=== PATIENT | female | born 1960 | race Caucasian/White ===

== ENCOUNTER 2019-12-17 07:46 | Outpatient (CLI) | payer MEDICARE, SELFPAY ==
--- NOTE | 2019-12-17 07:55 | MM_ITS ---
WS: [id number] BILATERAL DIGITAL SCREENING MAMMOGRAM WITH CAD CLINICAL INFORMATION: SCREENING HISTORY: Screening mammogram. No current complaints. COMPARISON: October 17, 2015 TECHNIQUE: Bilateral CC and MLO views. FINDINGS: Fatty-replaced breasts bilaterally. Stable oil cyst anterior medial right breast. No suspicious focal mass, asymmetry, calcifications, or architectural distortion. No evidence of malignancy. MM/[id number] IMPRESSION: BI-RADS: 2-Benign FOLLOW UP: 1 Year Follow-up Recommend return to annual screening mammography.
== END 2019-12-17 07:47 | disposition home or self-care (01) ==
LOC: RADSHAW 07:52
PROVIDERS: PCP Nurse Practitioner Family; Visit Provider Nurse Practitioner Family
DX: Z12.31 Encounter for screening mammogram for malignant neoplasm of breast (principal)
CPT/HCPCS: 77067

== ENCOUNTER → 2020-04-26 09:34 | Outpatient (BNVA) | payer MEDICARE, SELFPAY | PROVIDERS: PCP Nurse Practitioner Family; Visit Provider Nurse Practitioner Women's Health | DX: N95.0 Postmenopausal bleeding (principal) | CPT/HCPCS: 88175 ==

== ENCOUNTER → 2020-05-04 15:03 | Outpatient (BNVA) | payer MEDICARE, SELFPAY | PROVIDERS: PCP Nurse Practitioner Family; Visit Provider Nurse Practitioner Women's Health | DX: N95.0 Postmenopausal bleeding (principal) | CPT/HCPCS: 88305 ==

== ENCOUNTER 2021-04-12 11:41 | Outpatient (CLI) | payer MEDICARE, SELFPAY ==
--- NOTE | 2021-04-12 11:47 | MM_ITS ---
WS: [id number] BILATERAL DIGITAL SCREENING MAMMOGRAPHY WITH CAD CLINICAL INFORMATION: SCREENING HISTORY: Screening mammogram. No current complaints. COMPARISON: December 17, 2019 TECHNIQUE: Bilateral CC and MLO views. FINDINGS: Scattered fibroglandular densities bilaterally. Stable oil cyst anteromedial right breast. No suspici ous focal mass, asymmetry, calcifications, or architectural distortion. No evidence of malignancy. MM/[id number] IMPRESSION: BI-RADS: 2-Benign FOLLOW UP: 1 Year Follow-up Recommend return to annual screening mammography.
== END 2021-04-12 11:42 | disposition home or self-care (01) ==
LOC: RADSHAW 11:43
PROVIDERS: PCP Nurse Practitioner Family; Visit Provider Nurse Practitioner Family
DX: Z12.31 Encounter for screening mammogram for malignant neoplasm of breast (principal)
CPT/HCPCS: 77067

== ENCOUNTER 2022-02-01 14:26 | Outpatient (CLI) | payer MEDICARE, SELFPAY ==
--- NOTE | 2022-02-01 14:36 | XR_ITS ---
WS: [id number] SCREENING DEXA SCAN [employer] CLINICAL INFORMATION: POSTMENOPAUSAL COMPARISON: None. FINDINGS: The L1-L4 bone mineral density measures 1.350 g/cm2. This corresponds to a T score score of 1.4 and Z score of 1.6. Left femoral neck bone mineral density measures 1.105 g/cm2. This corresponds to a T score of 0.8 and Z score of 1.0. Right femoral neck bone mineral density measures 1.052 g/cm2. This corresponds to a T score 0.4of and Z score of 0.5. Mean femoral neck bone mineral density measures 1.079 g/cm2. This corresponds to a T score of 0.6 and Z score of 0.7. XR/XR DEXA axial skeleton* [id number] IMPRESSION: Normal bone mineralization. Patient's FRAX calculated 10 year probability for major osteoporotic fracture i s 6.1 % and osteoporotic hip fracture is 0.5%.
== END 2022-02-01 14:27 | disposition home or self-care (01) ==
PROVIDERS: PCP Nurse Practitioner Family; Visit Provider Nurse Practitioner Family
DX: Z78.0 Asymptomatic menopausal state (principal)
CPT/HCPCS: 77080

== ENCOUNTER 2022-09-22 15:12 | Inpatient (IN) | payer MEDICARE, SELFPAY ==
[2022-09-22] VITALS (11 sets, daily range): BP systolic 94–139; BP diastolic 58–92; PULSE 90–123; RESP 14–21; TEMP 36.6–37.1; O2SAT 91–99; BMI 36.0
--- NOTE | 2022-09-22 16:05 | CTR_ITS ---
PROCEDURE INFORMATION: Exam: CT Abdomen And Pelvis With Contrast Exam date and time: 09/22/2022 4:19 PM Age: 61 years old Clinical indication: Mass, lump, or swelling; Other: Right perianal; Prior surgery; Surgery type: Tubal; Additional info: Perianal abscess TECHNIQUE: Imaging protocol: Computed tomography of the abdomen and pelvis with contrast. Radiation optimization: All CT scans at this facility use at least one of these dose optimization techniques: automated exposure control; mA and/or kV adjustment per patient size (includes targeted exams where dose is matched to clinical indication); or iterative reconstruction. Contrast material: OMNI 350; Contrast volume: 100 ml; Contrast route: INTRAVENOUS (IV); REPORTING DATA: Count of CT and Cardiac NM exams in prior 12 months: This patient has received 0 known CTs and 0 known cardiac nuclear medicine studies in the 12 months prior to the current study. COMPARISON: US pelv w/transvag [id number] 04/10/2020 11:20 AM RADIATION DOSE METRICS: Total DLP (mGy-cm): 1111.23 FINDINGS: Liver: Hepatic steatosis. Gallbladder and bile ducts: Normal. No calcified stones. No ductal dilation. Pancreas: Normal. No ductal dilation. Spleen: Normal. No splenomegaly. Adrenal glands: Left adrenal hypertrophy. Kidneys and ureters: Left kidney cyst, negative for follow up. Stomach and bowel: See below. Appendix: No evidence of appendicitis. Intraperitoneal space: Unremarkable. No free air. No significant fluid collection. Vasculature: Unremarkable. No abdominal aortic aneurysm. Lymph nodes: Unremarkable. No enlarged lymph nodes. Urinary bladder: Unremarkable as visualized. Reproductive: Unremarkable as visualized. Bones/joints: Unremarkable. No acute fracture. Soft tissues: 27 mm collection of subcutaneous air and edema in the right gluteal crease suggestive of an ulcer and/or infectious process, negative for fluid collection seen. A portion of this appears to extend to the region of the anus. CT/CT abdomen pelvis w con* [id number] IMPRESSION: 1. 27 mm collection of subcutaneous air and edema in the right gluteal crease suggestive of an ulcer and/or infectious process, negative for fluid collection seen. A portion of this appears to extend to the region of the anus. 2. Hepatic steatosis. 3. Left adrenal hypertrophy. 4. Left kidney cyst, negative for follow up advised. COMMENTS: Consistent with the [employer]'s Incidental Findings Committee white paper (J Am Igor Radiol 2018): Any incidental renal lesion less than 1 cm or classified as too small to characterize, or any incidental cystic renal lesion characterized as simple-appearing, is likely benign. No follow-up imaging is recommended for these lesions per consensus recommendations based on imaging criteria.
--- NOTE | 2022-09-22 16:15 | W.ED.SKABFB ---
Documented by User: DUANE Zhao 09/22/22 16:42 HPI - Skin/Abscess/Foreign Bdy General: Chief complaint: Skin/Abscess/Foreign Body Stated complaint: Abscess on right buttock Time Seen by Provider: 09/22/22 15:37 History of Present Illness: Patient is a 61 yo female that presents with complaints of rectal abscess. She is a poorly controlled diabetic that developed a febrile illness 2 weeks ago and shortly after a small abscess on her right buttock. She was seen at [facility]. She was started on Bactrim. Her abscess has only worsened. She has purulent drainage that is foul smelling. She feels poorly but may have fevers at home. Mildly tachycardic Associated symptoms: Deny chills, fever(s), nausea or vomiting Review of Systems General: Reports: 10 or more systems reviewed and unremarkable except in HPI and below Const: Denies: fever(s), chills, change in appetite, change in weight, fatigue or malaise Card: Denies: chest pain, palpitations, irregular heart rhythm, edema, dyspnea on exertion, orthopnea or leg pain with exertion Resp: Denies: dyspnea, productive cough, non-productive cough, wheezing, stridor or chest congestion GI: Denies: abdominal pain, nausea, vomiting, dysphagia, diarrhea, constipation, bloating, GI cramping or hematochezia : Denies: flank pain, difficulty voiding, dysuria, urinary frequency, urinary urgency, urinary hesitancy, oliguria or hematuria Musc: Denies: neck pain, back pain, extremity pain, joint pain, joint swelling, joint redness, joint warmth or muscle weakness Skin/Breast: Reports: pruritus, erythema, skin tenderness, skin swelling, new lesions, changing lesions and non-healing lesions; Denies: rash Neuro: Denies: headache(s), numbness in extremities, weakness in extremities, sensory changes, lack of coordination, difficulty walking, frequent falls, dizziness, confusion, Slurred speech present, difficulty communicating thoughts, seizure-like activity or involuntary movements Endo: Denies: polyuria, polydipsia or tired all the time Marquise/Lymph: Denies: easy bruising or easy bleeding PFS ED PFSH: Medical History Anxiety Breast lump R side in 1300 position Depression Diabetes type 2 Diverticulosis of duodenum HTN (hypertension) No pertinent past medical history neghx; thyroid,dvt/pe Tachycardia Ulcer Urgency incontinence Surgical History History of fracture of right ankle ORIF Hx of tubal ligation (~1994) Family History Mother Diabetes Hypertension Grandmother Diabetes Paternal Father Hypertension Family/Other Heart disease Paternal Aunt, Paternal Uncle Denies family history of Colon cancer Ovarian cancer Clotting disorder Hypercholesteremia Breast cancer Bleeding disorder Uterine cancer Thyroid disease Stroke Social History Smoking and tobacco status: current every day smoker Additional social history: - Tobacco use: current- rolls her own cigarettes--unknown amount, started smoking at age 21 Alcohol use: None Drug use: Previous marijuana in her 20's Physical Exam Const: COMMON NORMALS: no acute distress, patient oriented x3 and alert GENERAL APPEARANCE: cooperative ORIENTATION/CONSCIOUSNESS: Yes awake, Yes oriented to person, Yes oriented to place and Yes oriented to time HENMT: COMMON NORMALS: normocephalic and atraumatic HEAD & SCALP: normocephalic and atraumatic FACE & SINUS: normal facial exam MOUTH: Normal oral and palatal mucosa present THROAT: posterior oropharynx normal Eye: COMMON NORMALS: Equal, round and reactive pupils present, EOMs intact bilaterally, conjunctivae normal and no scleral icterus GENERAL EYE: appearance normal, both eyes and all related structures ALIGNMENT: Yes alignment normal PERIORBITAL: periorbital findings normal CONJUNCTIVA: Yes conjunctivae normal PUPIL: Yes Equal, round and reactive pupils present Neck/C-Spine: COMMON NORMALS: full ROM GENERAL: Yes normal visual inspection Lymph: LYMPHATIC: no lymphadenopathy noted Chest: COMMONS NORMALS: normal inspection of the chest Breast/axilla inspection: Yes no chest deformity, asymmetry, normal contours, no nodules, masses, tenderness Resp: COMMON NORMALS: normal respiratory effort, No retractions, No use of accessory muscles and clear to auscultation bilaterally EFFORT & INSPECTION: Yes able to speak in complete sentences and Yes symmetric chest movement AUSCULTATION: clear to auscultation bilaterally Cardio: COMMON NORMALS: regular rate, regular rhythm and Peripheral pulses 2+ throughout RATE: regular rate RHYTHM: regular rhythm PERIPHERAL PULSES: Peripheral pulses 2+ throughout GI: COMMON NORMALS: Normal to inspection, nondistended, normoactive bowel sounds present, Soft to palpation, non-tender and No hepatosplenomegaly present INSPECTION: Yes normal to inspection AUSCULTATION: Yes normoactive bowel sounds PALPATION: Yes Soft to palpation and Yes No hepatosplenomegaly present RECTAL EXAM: deferred Extremity: COMMON NORMALS: normal to inspection GENERAL: Yes normal exam except as noted Neuro: COMMON NORMALS: patient oriented x3 SENSORIUM/ORIENTATION: Yes alert, Yes oriented to person, Yes oriented to place and Yes oriented to time CRANIAL NERVES: Yes CN normal except as noted Psych: COMMON NORMALS: mental status grossly normal, Normal thought process present, cooperative, activity/motor behavior normal, denies homicidal ideation and denies suicidal ideation THOUGHT PROCESS: Normal thought process present Skin: SKIN IMAGES (FEMALE): 1. Patient has a 13 cm area of induration with what appears to be loculated areas of fluctuance. She has foul-smelling purulent discharge from an open abscess. 2. Course Vital Signs: Vital signs: Vital Signs Temperature 98 F 10/01/22 15:13 Pulse Rate 91 10/01/22 15:13 Respiratory Rate 15 10/01/22 08:00 Blood Pressure 128/81 10/01/22 15:13 Pulse Oximetry 95 10/01/22 15:13 Oxygen Delivery Me thod 09/30/22 16:06 Oxygen Flow Rate 2 09/28/22 08:00 MDM - Skin/Abscess/Foreign Bdy Medicial Decision Making Differential diagnoses include simple cellulitis and abscess, perianal abscess/rectal abscess with deeper soft tissue recess. Patient was evaluated in the emergency department with complaints of abscess formation. It started approximately 2 weeks ago but is only significantly worsened in the last 5 to 7 days. She has been on Bactrim without any improvement. Her symptoms only progress and she now has some mild constitutional symptoms such as general malaise fatigue and possible fevers. Initially seen her in the emergency department I was able to express some of the purulent drainage. I consulted Dr. garcia. I have ordered a CT abdomen pelvis with contrast, CBC, CMP, lactate, blood cultures and wound culture. IV was started, 1 L normal saline initiated, Dilaudid IV given along with Zofran. Culture from the wound was obtained. While awaiting CT and laboratory results, Dr. Garcia will assume care. Lab Data 09/29/22 04:16 09/29/22 04:16 Radiology Impressions Abdomen/Pelvis CT 09/22/22 16:05 IMPRESSION: 1. 27 mm collection of subcutaneous air and edema in the right gluteal crease suggestive of an ulcer and/or infectious process, negative for fluid collection seen. A portion of this appears to extend to the region of the anus. 2. Hepatic steatosis. 3. Left adrenal hypertrophy. 4. Left kidney cyst, negative for follow up advised. COMMENTS: Consistent with the [employer]'s Incidental Findings Committee white paper (J Am Igor Radiol 2018): Any incidental renal lesion less than 1 cm or classified as too small to characterize, or any incidental cystic renal lesion characterized as simple-appearing, is likely benign. No follow-up imaging is recommended for these lesions per consensus recommendations based on imaging criteria. Laboratory Results WBC 11.7 10^3/uL (4.0-10.0) H 09/22/22 16:35 RBC 4.33 10^6/uL (4.1-5.3) 09/22/22 16:35 Hgb 11.6 g/dL (11.5-15.3) 09/22/22 16:35 Hct 36.8 % (37.0-47.0) L 09/22/22 16:35 MCV 85.0 fl (81-99) 09/22/22 16:35 MCH 26.8 pg (28.0-34.0) L 09/22/22 16:35 MCHC 31.5 g/dL (30.0-36.0) 09/22/22 16:35 RDW 13.4 % (12.1-15.1) 09/22/22 16:35 Plt Count 367 10^3/cmm (130-400) 09/22/22 16:35 MPV 10.3 fL (7.4-10.4) 09/22/22 16:35 Neut % (Auto) 73.6 % 09/22/22 16:35 Lymph % (Auto) 18.3 % 09/22/22 16:35 Ramsey % (Auto) 5.8 % 09/22/22 16:35 Eos % (Auto) 0.8 % 09/22/22 16:35 Baso % (Auto) 0.5 % 09/22/22 16:35 Neut # (Auto) 8.58 10^3/uL (1.8-7.7) H 09/22/22 16:35 Lymph # (Auto) 2.1 10^3/uL (0.8-4.8) 09/22/22 16:35 Ramsey # (Auto) 0.7 10^3/uL (0.2-0.9) 09/22/22 16:35 Eos # (Auto) 0.1 10^3/uL (0.0-0.8) 09/22/22 16:35 Baso # (Auto) 0.1 10^3/uL (0.0-0.1) 09/22/22 16:35 Nucleated RBC % (auto) 0 % 09/22/22 16:35 Nucleated RBCs # 0.0 /100WBC 09/22/22 16:35 Sodium 133 mmol/L (136-145) L 09/22/22 16:35 Potassium 4.6 mmol/L (3.5-5.1) 09/22/22 16:35 Chloride 99 mmol/L (98-107) 09/22/22 16:35 Carbon Dioxide 21 mmol/L (22-29) L 09/22/22 16:35 Anion Gap 17.6 (5-19) 09/22/22 16:35 BUN 22 mg/dL (6-20) H 09/22/22 16:35 Creatinine 1.1 mg/dL (0.5-0.9) H 09/22/22 16:35 GFR Calculation 50.8 mL/min (90-130) L 09/22/22 16:35 Glucose 200 mg/dL (65-115) H 09/22/22 16:35 Calculated Osmolality 285 mOsm/kg (285-295) 09/22/22 16:35 Lactic Acid 1.5 mmol/L (0.5-2.2) 09/22/22 16:35 Calcium 8.8 mg/dL (8.5-10.5) 09/22/22 16:35 Serum Ketones Negative (Negative) 09/22/22 16:35 Discharge Plan Discharge Patient Disposition: Admitted As Inpatient Admit Provider: Edi Barrera Clinical Impression: Cellulitis, Abscess of skin or subcutaneous tissue, SIRS (systemic inflammatory response syndrome) Condition: Stable Discharge Diet: Cardiac and Diabetic Discharge Activity: Resume usual activity and Increase activity as tolerated Coding Level of Care Code ED Bead Forming Machine Set Up Operator for Chg Fwd Documented by User: Deniz Garcia MD 10/05/22 11:34 HPI - Skin/Abscess/Foreign Bdy General: Chief complaint: Skin/Abscess/Foreign Body Stated complaint: Abscess on right buttock Time Seen by Provider: 09/22/22 15:37 PFSH ED PFSH: Medical History Anxiety Breast lump R side in 1300 position Depression Diabetes type 2 Diverticulosis of duodenum HTN (hypertension) No pertinent past medical history neghx; thyroid,dvt/pe Tachycardia Ulcer Urgency incontinence Surgical History History of fracture of right ankle ORIF Hx of tubal ligation (~1994) Family History Mother Diabetes Hypertension Grandmother Diabetes Paternal Father Hypertension Family/Other Heart disease Paternal Aunt, Paternal Uncle Denies family history of Colon cancer Ovarian cancer Clotting disorder Hypercholesteremia Breast cancer Bleeding disorder Uterine cancer Thyroid disease Stroke Social History Smoking and tobacco status: current every day smoker Additional social history: - Tobacco use: current- rolls her own cigarettes--unknown amount, started smoking at age 21 Alcohol use: None Drug use: Previous marijuana in her 20's Physical Exam Skin: SKIN IMAGES (FEMALE): 1. Patient has a 13 cm area of induration with what appears to be loculated areas of fluctuance. She has foul-smelling purulent discharge from an open abscess. 2. Course Vital Signs: Vital signs: Vital Signs Temperature 98 F 10/01/22 15:13 Pulse Rate 91 10/01/22 15:13 Respiratory Rate 15 10/01/22 08:00 Blood Pressure 128/81 10/01/22 15:13 Pulse Oximetry 95 10/01/22 15:13 Oxygen Delivery Me thod 09/30/22 16:06 Oxygen Flow Rate 2 09/28/22 08:00 MDM - Skin/Abscess/Foreign Bdy Medicial Decision Making Differential diagnoses include simple cellulitis and abscess, perianal abscess/rectal abscess with deeper soft tissue recess. Patient was evaluated in the emergency department with complaints of abscess formation. It started approximately 2 weeks ago but is only significantly worsened in the last 5 to 7 days. She has been on Bactrim without any improvement. Her symptoms only progress and she now has some mild constitutional symptoms such as general malaise fatigue and possible fevers. Initially seen her in the emergency department I was able to express some of the purulent drainage. I consulted Dr. garcia. I have ordered a CT abdomen pelvis with contrast, CBC, CMP, lactate, blood cultures and wound culture. IV was started, 1 L normal saline initiated, Dilaudid IV given along with Zofran. Culture from the wound was obtained. While awaiting CT and laboratory results, Dr. Garcia will assume care. I discussed this case with Hailee ZEPEDA. I assumed care of the patient. I personally saw and evaluated the patient and reperformed lovett portions of E/M. I have reviewed documentation, labs, imaging. Patient has cellulitis/draining abscess that has failed outpatient management. The results of ED evaluation were discussed with the patient including plan for admission due to requirement for level of care not available if discharged to prevent significant worsening/deterioration. Patient agreeable with plan. Discussed with hospitalist service who was agreeable to admit patient. Lab Data 09/29/22 04:16 09/29/22 04:16 Radiology Impressions Abdomen/Pelvis CT 09/22/22 16:05 IMPRESSION: 1. 27 mm collection of subcutaneous air and edema in the right gluteal crease suggestive of an ulcer and/or infectious process, negative for fluid collection seen. A portion of this appears to extend to the region of the anus. 2. Hepatic steatosis. 3. Left adrenal hypertrophy. 4. Left kidney cyst, negative for follow up advised. COMMENTS: Consistent with the [employer]'s Incidental Findings Committee white paper (J Am Igor Radiol 2018): Any incidental renal lesion less than 1 cm or classified as too small to characterize, or any incidental cystic renal lesion characterized as simple-appearing, is likely benign. No follow-up imaging is recommended for these lesions per consensus recommendations based on imaging criteria. Laboratory Results WBC 11.7 10^3/uL (4.0-10.0) H 09/22/22 16:35 RBC 4.33 10^6/uL (4.1-5.3) 09/22/22 16:35 Hgb 11.6 g/dL (11.5-15.3) 09/22/22 16:35 Hct 36.8 % (37.0-47.0) L 09/22/22 16:35 MCV 85.0 fl (81-99) 09/22/22 16:35 MCH 26.8 pg (28.0-34.0) L 09/22/22 16:35 MCHC 31.5 g/dL (30.0-36.0) 09/22/22 16:35 RDW 13.4 % (12.1-15.1) 09/22/22 16:35 Plt Count 367 10^3/cmm (130-400) 09/22/22 16:35 MPV 10.3 fL (7.4-10.4) 09/22/22 16:35 Neut % (Auto) 73.6 % 09/22/22 16:35 Lymph % (Auto) 18.3 % 09/22/22 16:35 Ramsey % (Auto) 5.8 % 09/22/22 16:35 Eos % (Auto) 0.8 % 09/22/22 16:35 Baso % (Auto) 0.5 % 09/22/22 16:35 Neut # (Auto) 8.58 10^3/uL (1.8-7.7) H 09/22/22 16:35 Lymph # (Auto) 2.1 10^3/uL (0.8-4.8) 09/22/22 16:35 Ramsey # (Auto) 0.7 10^3/uL (0.2-0.9) 09/22/22 16:35 Eos # (Auto) 0.1 10^3/uL (0.0-0.8) 09/22/22 16:35 Baso # (Auto) 0.1 10^3/uL (0.0-0.1) 09/22/22 16:35 Nucleated RBC % (auto) 0 % 09/22/22 16:35 Nucleated RBCs # 0.0 /100WBC 09/22/22 16:35 Sodium 133 mmol/L (136-145) L 09/22/22 16:35 Potassium 4.6 mmol/L (3.5-5.1) 09/22/22 16:35 Chloride 99 mmol/L (98-107) 09/22/22 16:35 Carbon Dioxide 21 mmol/L (22-29) L 09/22/22 16:35 Anion Gap 17.6 (5-19) 09/22/22 16:35 BUN 22 mg/dL (6-20) H 09/22/22 16:35 Creatinine 1.1 mg/dL (0.5-0.9) H 09/22/22 16:35 GFR Calculation 50.8 mL/min (90-130) L 09/22/22 16:35 Glucose 200 mg/dL (65-115) H 09/22/22 16:35 Calculated Osmolality 285 mOsm/kg (285-295) 09/22/22 16:35 Lactic Acid 1.5 mmol/L (0.5-2.2) 09/22/22 16:35 Calcium 8.8 mg/dL (8.5-10.5) 09/22/22 16:35 Serum Ketones Negative (Negative) 09/22/22 16:35 Discharge Plan Discharge Patient Disposition: Admitted As Inpatient Admit Provider: Edi Barrera Clinical Impression: Cellulitis, Abscess of skin or subcutaneous tissue, SIRS (systemic inflammatory response syndrome) Condition: Stable Discharge Diet: Cardiac and Diabetic Discharge Activity: Resume usual activity and Increase activity as tolerated Coding Level of Care Code ED Bead Forming Machine Set Up Operator for Taiwo Wong
[2022-09-22] MEDS: iohexol 350 mg/mL 500 mL Btl (per mL) IV (16:16)
[2022-09-22] MEDS: ondansetron 2 mg/ML SDV 2 mL 4 MG IVP (16:37)
[2022-09-22] MEDS: HYDROmorphone 1 mg/mL INJ 1 mL 0.5 MG IVP ×2 (16:37→17:14)
[2022-09-22] MEDS: sodium chloride 0.9% 500 ML IV (16:38)
[2022-09-22] MEDS: piperacillin-tazobactam 4.5 GM in sodium chloride 0.9% (plus) 50 ML IV (17:14)
[2022-09-22 17:19] LABS: Basophils # 0.1 10^3/uL (0.0-0.1); Basophils % 0.5 %; Eosinophils # 0.1 10^3/uL (0.0-0.8); Eosinophils % 0.8 %; Hematocrit 36.8 % (37.0-47.0); Hemoglobin 11.6 g/dL (11.5-15.3); Lymphocytes # 2.1 10^3/uL (0.8-4.8); Lymphocytes % 18.3 %; Mean Corpuscular HGB Conc 31.5 g/dL (30.0-36.0); Mean Corpuscular Hemoglobin 26.8 pg (28.0-34.0); Mean Platelet Volume 10.3 fL (7.4-10.4); Monocytes # 0.7 10^3/uL (0.2-0.9); Monocytes % 5.8 %; Neutrophils # 8.58 10^3/uL (1.8-7.7); Neutrophils % 73.6 %; Nucleated Red Blood Cells % 0 %; Platelet Count 367 10^3/cmm (130-400); Red Blood Count 4.33 10^6/uL (4.1-5.3); Red Cell Distribution Width 13.4 % (12.1-15.1); White Blood Count 11.7 10^3/uL (4.0-10.0)
[2022-09-22 17:40] LABS: Anion Gap 17.6 (5-19); Blood Urea Nitrogen 22 mg/dL (6-20); Calcium 8.8 mg/dL (8.5-10.5); Carbon Dioxide 21 mmol/L (22-29); Chloride 99 mmol/L (98-107); Glomerular Filtration Rate 50.8 mL/min (90-130); Glucose 200 mg/dL (65-115); Lactic Sepsis W/Reflex 1.5 mmol/L (0.5-2.2); Osmolality Calculated 285 mOsm/kg (285-295); Potassium 4.6 mmol/L (3.5-5.1); Sodium 133 mmol/L (136-145)
--- NOTE | 2022-09-22 17:59 | P.HP_ITS ---
Providers/Chief Complaint Primary Care Provider: ALEJANDRO Moore Chief Complaint: Abscess on right buttock History of Present Illness Lisa Duke is a 61 year old female with past medical history of hypertension diabetes came in today with chief complaint worsening of right buttock swelling, it started about 2 weeks back, since then it has progressively worsening and currently it is having purulent foul-smelling discharge.she also reports fever at home, was being managed as outpatient on p.o. Bactrim, has failed to respond. CT abdomen and pelvis has shown: 27 mm collection of subcutaneous air and edema in the right gluteal crease suggestive of an ulcer and/or infectious process, negative for fluid collection seen.?A portion of this appears to extend to the region of the anus.? Pertinent labs: WBC 11.7, H&H: 11 and 36,PLT : 367 , serum sodium 133 serum potassium 4.6, BUN 22, serum creatinine 1.1, random blood sugar 200, lactic acid 1.5, Patient received 1 dose of vancomycin and Zosyn in the ER. Review of Systems General: Reports: 10 or more systems reviewed and unremarkable except in HPI and below Const: Denies: fever(s), chills, body aches, change in appetite or diaphoresis Card: Denies: palpitations, edema, swelling of feet/ankles, dyspnea on exertion, orthopnea or leg pain with exertion Resp: Denies: dyspnea, productive cough, wheezing or pain on inspiration GI: Denies: abdominal pain, nausea, vomiting, diarrhea or constipation : Denies: flank pain Musc: Denies: back pain, extremity pain or extremity swelling Neuro: Denies: headache(s), difficulty walking or confusion Medications/Allergies Home Medications Medication Instructions Recorded Confirmed Last Taken Type baclofen 10 mg tablet 10 mg PO QDAY PRN 04/26/20 12/09/21 Unknown History cetirizine 10 mg capsule (All Day 10 mg PO DAILY 04/26/20 12/09/21 Unknown History Allergy (cetirizine)) glipizide 5 mg tablet 5 mg PO DAILY 04/26/20 12/09/21 Unknown History lisinopril 2.5 mg tablet 2.5 mg PO DAILY 04/26/20 12/09/21 Unknown History metoprolol tartrate 50 mg tablet 50 mg PO BID 04/26/20 12/09/21 Unknown History omeprazole 20 mg capsule,delayed 20 mg PO BID 04/26/20 12/09/21 Unknown History release semaglutide 0.25 mg or 0.5 mg (2 SUBCUT 04/26/20 12/09/21 Unknown History mg/1.5 mL) subcutaneous pen injector (Ozempic) polymyxin B sulfate 10,000 1 drp ophthalmic (eye) Q3H 7 days 12/09/21 12/09/21 Unknown Rx unit-trimethoprim 1 mg/mL eye #10 mL drops (Polytrim) Allergies Allergy/AdvReac Type Severity Reaction Status Date / Time dulaglutide [From [facility]] Allergy nausea Verified 12/09/21 18:49 PFSH Acute PFSH: Medical History (Updated 09/22/22 @ 18:00 by Edi Barrera MD) Anxiety Breast lump R side in 1300 position Depression Diabetes type 2 Diverticulosis of duodenum HTN (hypertension) No pertinent past medical history neghx; thyroid,dvt/pe Tachycardia Ulcer Urgency incontinence Surgical History History of fracture of right ankle ORIF Hx of tubal ligation (~1994) Family History Mother Diabetes Hypertension Grandmother Diabetes Paternal Father Hypertension Family/Other Heart disease Paternal Aunt, Paternal Uncle Denies family history of Colon cancer Ovarian cancer Clotting disorder Hypercholesteremia Breast cancer Bleeding disorder Uterine cancer Thyroid disease Stroke Social History Smoking and tobacco status: current every day smoker Additional social history: - Tobacco use: current- rolls her own cigarettes--unknown amount, started smoking at age 21 Alcohol use: None Drug use: Previous marijuana in her 20's Vitals/I&O/Wt Last Vital Signs Temp 98.5 F 09/22/22 15:41 Pulse 103 H 09/22/22 15:41 Resp 20 H 09/22/22 16:37 BP 139/92 09/22/22 15:41 Pulse Ox 96 09/22/22 15:41 O2 Del Method 09/22/22 15:41 Weight last 48 hrs Weight 95.254 kg Physical Exam Const: COMMON NORMALS: patient oriented x3 HENMT: COMMON NORMALS: normocephalic, atraumatic and hearing grossly normal bilaterally Resp: COMMON NORMALS: normal respiratory effort, No retractions, No use of accessory muscles and clear to auscultation bilaterally EFFORT & INSPECTION: Yes symmetric chest movement AUSCULTATION: clear to auscultation bilaterally Cardio: COMMON NORMALS: regular rate, regular rhythm, S1 normal heart sound present, S2 normal heart sound present, No gallops present (Cardio), No murmurs present (Cardio), No rub (Cardio) and Peripheral pulses 2+ throughout RATE: regular rate RHYTHM: regular rhythm HEART SOUNDS: S1 normal heart sound present and S2 normal heart sound present PERIPHERAL PULSES: Peripheral pulses 2+ throughout GI: COMMON NORMALS: Normal to inspection, nondistended, normoactive bowel sounds present, Soft to palpation, non-tender, No hepatosplenomegaly present and no masses AUSCULTATION: Yes normoactive bowel sounds PALPATION: Yes Soft to palpation and Yes No hepatosplenomegaly present RECTAL EXAM: deferred Extremity: COMMON NORMALS: no clubbing, cyanosis or edema and no pedal edema Neuro: COMMON NORMALS: patient oriented x3 Data 09/22/22 16:35 09/22/22 16:35 Micro: Microbiology 09/22/22 16:40 Blood Culture - Preliminary Blood SPECIMEN COLLECTED 09/22/22 16:47 Blood Culture - Preliminary Blood SPECIMEN COLLECTED A&P Assessment and plan (1) Cellulitis: (2) HTN (hypertension): (3) Diabetes: Qualifiers: Diabetes mellitus complication detail: with unspecified neuropathy Diabetes mellitus complication status: with neurologic complications Diabetes mellitus terminologist insulin use: with terminologist use Diabetes mellitus type: type 2 Qualified Code(s): E11.40 - Type 2 diabetes mellitus with diabetic neuropath y, unspecified; Z79.4 - assisted (current) use of insulin (4) Hyponatremia: Plan 61 year old female with past medical history of hypertension diabetes came in t [facility] with chief complaint worsening of right buttock swelling, it started about 2 weeks back, since then it has progressively worsening and currently it is having purulent foul-smelling discharge.she also reports fever at home, was being managed as outpatient on p.o. Bactrim, has failed to respond. Assessment: Right buttock cellulitis possible developing abscess: CT abdomen and pelvis has shown: 27 mm collection of subcutaneous air and edema in the right gluteal crease suggestive of an ulcer and/or infectious process, negative for fluid collection seen.?A portion of this appears to extend to the region of the anus.? Follow blood culture ESR CRP Currently started on broad-spectrum antibiotic vancomycin and Zosyn History of diabetes: Follow HbA1c Lantus : 20u sc daily, LDSSI, monitor fingerstick glucose Carb consistent History of hypertension: Currently lisinopril on hold for possible developing ERIN Started on low-dose amlodipine Hyponatremia: Continue gentle IV addition normal saline 75 cc an hour ERIN on CKD versus CKD Serum creatinine is 1.1 Baseline serum creatinine unknown Monitor BMP Avoid nephrotoxic's Gentle IV hydration CODE STATUS: Full code DVT prophylaxis on Lovenox Attestations Medical Necessity Statement*: Patient is in hospital for management of cellulitis need for IV antibiotics.Anticipated length of stay greater midnightS Coding Level of Care Code 19494 Diagnoses Cellulitis L03.90 HTN (hypertension) I10 Diabetes E11.40; Z79.4 Diabetes mellitus complication detail: with unspecified neuropathy Diabetes mellitus complication status: with neurologic complications Diabetes mellitus long-term insulin use: with terminologist use Diabetes mellitus type: type 2 Hyponatremia E87.1
[2022-09-22 18:10] LABS: Ketone (Acetest) Serum Negative (Negative)
[2022-09-22] MEDS: sodium chloride 0.9% 1,000 ML 75 ML IV (18:44)
[2022-09-22 18:52] LABS: Glucose Point of Care 166 mg/dL (70-110)
[2022-09-22] MEDS: insulin lispro 100 unit/1 mL SUBCUT (19:09)
[2022-09-22] MEDS: nicotine 4 mg lozenge MUCOUS MEM (21:18)
[2022-09-22] MEDS: oxyCODONE-APAP 5-325 mg Tablet 1 TAB PO (21:22)
[2022-09-22 21:29] LABS: Glucose Point of Care 122 mg/dL (70-110)
[2022-09-22] MEDS: insulin glargine 100 units/1 mL 20 UNIT SUBCUT (21:39)
[2022-09-23] VITALS (11 sets, daily range): BP systolic 85–125; BP diastolic 56–78; PULSE 75–93; RESP 12–22; TEMP 36.4–36.9; O2SAT 93–99
[2022-09-23] MEDS: piperacillin-tazobactam 3.375 GM in sodium chloride 0.9% (plus) 50 ML IV ×3 (00:23→15:59)
[2022-09-23] MEDS: oxyCODONE-APAP 5-325 mg Tablet 1 TAB PO ×3 (05:09→16:12)
[2022-09-23 05:16] LABS: Basophils # 0.1 10^3/uL (0.0-0.1); Basophils % 0.8 %; Eosinophils # 0.2 10^3/uL (0.0-0.8); Eosinophils % 2.1 %; Hematocrit 37.7 % (37.0-47.0); Hemoglobin 11.7 g/dL (11.5-15.3); Lymphocytes # 3.3 10^3/uL (0.8-4.8); Lymphocytes % 32.2 %; Mean Corpuscular Hemoglobin 26.7 pg (28.0-34.0); Mean Corpuscular Volume 86.1 fl (81-99); Mean Platelet Volume 9.8 fL (7.4-10.4); Monocytes # 0.6 10^3/uL (0.2-0.9); Monocytes % 5.9 %; Neutrophils # 5.87 10^3/uL (1.8-7.7); Neutrophils % 57.9 %; Nucleated Red Blood Cells % 0 %; Platelet Count 373 10^3/cmm (130-400); Red Blood Count 4.38 10^6/uL (4.1-5.3); Red Cell Distribution Width 13.7 % (12.1-15.1); White Blood Count 10.1 10^3/uL (4.0-10.0)
[2022-09-23 05:30] LABS: Estmated Average Glucose 235; Hemoglobin A1C 9.8 % (4.0-6.0)
[2022-09-23 05:33] LABS: C Reactive Protein 63.8 mg/L (0.0-4.9)
[2022-09-23 05:37] LABS: Anion Gap 15.1 (5-19); Blood Urea Nitrogen 13 mg/dL (6-20); Calcium 8.9 mg/dL (8.5-10.5); Carbon Dioxide 24 mmol/L (22-29); Chloride 101 mmol/L (98-107); Creatinine Clr Calc Pharmacy 75.3542; Glomerular Filtration Rate 64.1 mL/min (90-130); Glucose 111 mg/dL (65-115); Osmolality Calculated 281 mOsm/kg (285-295); Potassium 5.1 mmol/L (3.5-5.1); Sodium 135 mmol/L (136-145)
[2022-09-23 05:41] LABS: Procalcitonin 2.35 ng/mL (0-0.5)
[2022-09-23 05:43] LABS: Erythrocyte Sedimentation Rate 19 mm/hr (0-15)
[2022-09-23 06:00] LABS: Slide Review Slide Review Perform
[2022-09-23 06:47] LABS: Glucose Point of Care 142 mg/dL (70-110)
[2022-09-23] MEDS: sodium chloride 0.9% 1,000 ML 75 ML IV ×2 (07:45→23:11)
[2022-09-23] MEDS: insulin lispro 100 unit/1 mL SUBCUT ×4 (07:46→20:31)
[2022-09-23] MEDS: pantoprazole DR 40 mg Tablet PO (08:45)
[2022-09-23] MEDS: metoprolol tartrate 50 mg Tablet PO ×2 (08:46→18:57)
[2022-09-23] MEDS: amlodipine 5 mg Tablet PO (08:46)
[2022-09-23 09:49] LABS: Iron 39 ug/dL (37-145); Thyroid Stimulating Hormone 2.16 uIU/mL (0.27-4.20); Total Iron Binding Capacity 229 mcg/dl; Unsaturated Iron Binding 190 ug/dL (112-347); Vitamin B12 397 pg/mL (232-1245)
[2022-09-23 10:14] LABS: Folate Level > 20.0 ng/mL (4.8-37.3)
[2022-09-23] MEDS: nicotine 4 mg lozenge MUCOUS MEM ×3 (10:21→21:46)
[2022-09-23 10:42] LABS: Glucose Point of Care 208 mg/dL (70-110)
--- NOTE | 2022-09-23 10:45 | PC.CHAP ---
Pastoral Care Encounter/Spiritual Assessment Type of Contact [] Declined audiovisual tech visit [] Patient/Family/Request visit [] Outpatient visit [] Follow-up visit [] Physician referral [] Code/Alert [x] Routine visit [] Staff referral [] Actively dying [] Patient sleeping [x] Family support [] [] Out of room [] Palliative care [] [] Receiving care in room [] Pre-surgical visit [] Trauma [] Long length of stay [] ICU visit [] Other: Relational/Emotional Strength [x] Patient feels connected with others/family/visitors/staff [] Distress [] Loneliness/isolation [] Abandonment Spirituality of Patient [x] Person of Sarai [] Attends Islam of their Sarai [x] Believes in Prayer [] Reads Bible or Restorationism materials [] There are Spiritual issues to be addressed Curriculum And Instruction Specialist Interventions [x] Prayer [x] Active listening [] Non-anxious presence [x] Spiritual/emotional support [] Crisis/trauma care [] Spiritual counseling [] Bereavement support [] Provided bereavement packet [] Provided Bible/devotional materials [] Provided toy/stuffed animal, coloring book to patient or family member [] Provided Communion [] Anointing/[place] [] Salvation [x] Completed spiritual assessment [] Other: Impact on Illness or Injury [] Angry [] Fearful [] Anxious [] Often cries [] Exhaustion [] Unable to work [] Unable to attend adventist [] Unable to walk/stand [] Unable to read [] Unable to drive [] Unable to eat/drink [] Unable to sleep [] Unable to be with family [] Patient intubated [] Other: Summary Time spent with patient 10 min
[2022-09-23] MEDS: vancomycin 1,000 MG in sodium chloride 0.9% 250 ML 250 MG IV (11:58)
--- NOTE | 2022-09-23 13:26 | P.PN_ITS ---
Subjective Subjective: Hospital course, labs appreciated. Seen with family at bedside. Patient states she is feeling better. Pain is well controlled. Denies any nausea, vomiting, headache. We discussed the extent of cellulitis and possibility of conversion to a deep gluteal abscess with extension to anus in detail. We discussed the need of continued IV antibiotics and possibility of need of colorectal surgery if shows no improvement. Also discussed the need of better blood sugar control chronically even at home. Patient states she has not taken Ozempic for last 3 to 4 weeks as medication was not available to her. Vitals/I&O/Wt Last Vital Signs Temp 98.5 F 09/23/22 11:44 Pulse 75 09/23/22 11:44 Resp 12 09/23/22 11:44 BP 115/78 09/23/22 11:44 Pulse Ox 99 09/23/22 11:44 O2 Del Method 09/23/22 11:44 09/22/22 09/23/22 09/23/22 22:59 06:59 14:59 Intake Total 1730 / 1730 530 / 2260 1955.25 / 1955. Output Total 300 / 300 950 / 1250 Balance 1430 / 1430 -420 / 1010 1955. / 1955. Weight last 48 hrs Weight 95.254 kg Weight 95.254 kg Physical Exam Const: COMMON NORMALS: patient oriented x3 HENMT: COMMON NORMALS: normocephalic, atraumatic and hearing grossly normal bilaterally HEAD & SCALP: normocephalic and atraumatic Resp: COMMON NORMALS: normal respiratory effort, No retractions, No use of ac cessory muscles and clear to auscultation bilaterally EFFORT & INSPECTION: Yes symmetric chest movement AUSCULTATION: clear to auscultation bilaterally Cardio: COMMON NORMALS: regular rate, regular rhythm, S1 normal heart sound present, S2 normal heart sound present, No gallops present (Cardio), No murmurs present (Cardio), No rub (Cardio) and Peripheral pulses 2+ throughout RATE: regular rate RHYTHM: regular rhythm HEART SOUNDS: S1 normal heart sound present and S2 normal heart sound present PERIPHERAL PULSES: Peripheral pulses 2+ throughout GI: COMMON NORMALS: Normal to inspection, nondistended, normoactive bowel sounds present, Soft to palpation, non-tender, No hepatosplenomegaly present and no masses AUSCULTATION: Yes normoactive bowel sounds PALPATION: Yes Soft to palpation and Yes No hepatosplenomegaly present RECTAL EXAM: deferred Extremity: COMMON NORMALS: no clubbing, cyanosis or edema and no pedal edema Neuro: COMMON NORMALS: patient oriented x3 Data 09/23/22 04:54 09/23/22 04:54 Micro: Microbiology 09/22/22 16:47 Blood Culture - Preliminary Blood 09/22/22 16:40 Blood Culture - Preliminary Blood SPECIMEN COLLECTED A&P Assessment and plan (1) Cellulitis, gluteal, right: (2) Abscess of skin or subcutaneous tissue: (3) SIRS (systemic inflammatory response syndrome): (4) Uncontrolled type 2 diabetes mellitus: (5) HTN (hypertension): (6) Hyponatremia: Plan 61 year old female with past medical history of hypertension diabetes came in today with chief complaint worsening of right buttock swelling, it started about 2 weeks back, since then it has progressively worsening and currently it is having purulent foul-smelling discharge.she also reports fever at home, was being managed as outpatient on p.o. Bactrim, has failed to respond. Assessment: Right buttock cellulitis possible developing abscess: Appreciate CT results. No concerns for fluid collection/abscess for now but does have concerns for extend to the region of anus. Appreciate CRP. Blood cultures so far negative. Check MRSA swab. Obtain wound cultures. Extensive wound care. Continue with vancomycin and Zosyn for now. If MRSA negative can discontinue Zosyn. If patient has a slow recovery or continues to spike fever or becomes septic will consult surgery for possibility of rectal involvement. Uncontrolled type 2 diabetes mellitus: A1c 9.8. Patient supposed to be on glipizide and Ozempic at home. Not using Ozempic for last 2 to 4 weeks as not available. Patient does complain of nausea with Ozempic. Discussed in detail for tighter sugar controls and possible discharge on insu thierno. Patient verbalizes understanding and is agreeable. For now continue with Lantus 20 units at bedtime along with insulin sliding scale at low-dose protocol before meals and at bedtime. History of hypertension: Goal blood pressure less than 140/90 mmHg. Lisinopril withheld on admission given concerns for ERIN. Continue amlodipine for now. Hyponatremia: Resolved. Continue gentle IV addition normal saline 75 cc an hour Acute kidney injury: Baseline creatinine seems to be normal. Resolved. Medical reconciliation done for nephrotoxic drugs. CODE STATUS: Full code Carb consistent cardiac diet. DVT prophylaxis on Lovenox Protonix for PUD prophylaxis Tylenol as needed, oxycodone 5 mg every 6 hours as needed for pain management. Attestations Medical Necessity Statement*: Request continue hospitalization for further management of right gluteal cellulitis with concern of a developing abscess in c lose proximity to anus, uncontrolled type 2 diabetes mellitus Diagnoses Cellulitis, gluteal, right L03.317 Abscess of skin or subcutaneous tissue L02.91 SIRS (systemic inflammatory response syndrome) R65.10 Uncontrolled type 2 diabetes mellitus HTN (hypertension) I10 Hyponatremia E87.1
[2022-09-23] MEDS: enoxaparin 40 mg/0.4 mL Syringe SUBCUT (15:59)
[2022-09-23 16:39] LABS: Glucose Point of Care 211 mg/dL (70-110)
--- NOTE | 2022-09-23 17:35 | PC.NURSE ---
Patient resting in bed, VSS, AAOx4, on edge over nicotine, pain controlled with meds per MAR except during wound dressing. Patient OOBTC and bathroom independently. Room clean and clutter free with call light in reach and family at bedside.
[2022-09-23 20:25] LABS: Glucose Point of Care 192 mg/dL (70-110)
[2022-09-23] MEDS: insulin glargine 100 units/1 mL 20 UNIT SUBCUT (20:33)
[2022-09-23 22:50] LABS: Glucose Point of Care 85 mg/dL (70-110)
--- NOTE | 2022-09-23 22:57 | PC.NURSE ---
Pt used her call light. This nurse answered her call light and found the patient lying supine and performing deep breathing exercises. This nurse asked the patient if everything was okay. The patient stated that she was extremely sweaty and couldn't stop sweating, and that she felt weak and was having tremors. This nurse rechecked the patient's vitals and blood sugar. The vitals were BP 125/77, HR 84, RR 22, axillary temp 97.5, and pulse oximetry 98% on room air. The blood sugar was 85. This nurse asked the patient if she had ever had this happen before and she said yes, but not to this extent. This nurse asked if the patient ever had anxiety or panic attacks before and the patient replied no. This nurse provided the patient reassurance and a snack of peanut butter, saltines, and chocolate milk and explained that it could be that her body was not used to this blood sugar level if her blood sugar was continuously higher at home. The patient stated that was probably it and agreed to eating the snack. This nurse asked the patient to use the call light again if symptoms persisted or if the patient needed anything else.
[2022-09-24] VITALS (20 sets, daily range): BP systolic 94–151; BP diastolic 55–90; PULSE 65–88; RESP 16–20; TEMP 36.4–36.7; O2SAT 95–99
[2022-09-24] MEDS: piperacillin-tazobactam 3.375 GM in sodium chloride 0.9% (plus) 50 ML IV ×2 (01:09→08:03)
--- NOTE | 2022-09-24 02:56 | PC.NURSE ---
This nurse rounded on the patient and found her getting up to go to the bathroom. The patient stated that she was feeling much better than before, and that all her needs were met at this time.
[2022-09-24] MEDS: vancomycin 1,000 MG in sodium chloride 0.9% 250 ML 250 MG IV (05:21)
[2022-09-24 05:45] LABS: Hemoglobin 11.8 g/dL (11.5-15.3); Mean Corpuscular HGB Conc 31.1 g/dL (30.0-36.0); Mean Corpuscular Hemoglobin 26.3 pg (28.0-34.0); Mean Corpuscular Volume 84.6 fl (81-99); Mean Platelet Volume 9.6 fL (7.4-10.4); Platelet Count 394 10^3/cmm (130-400); Red Blood Count 4.49 10^6/uL (4.1-5.3); Red Cell Distribution Width 13.4 % (12.1-15.1); White Blood Count 10.1 10^3/uL (4.0-10.0)
[2022-09-24 06:04] LABS: Absolute Eosinophils 0.3 10^3/cmm (0.0-0.7); Absolute Segmented Neutrophil 5.4 10/cmm (1.6-7.1); Alanine Aminotransferase 13 U/L (0-33); Albumin Level 3.3 g/dL (3.5-5.2); Alkaline Phosphatase 63 U/L (35-105); Anion Gap 14.2 (5-19); Aspartate Amino Transferase 14 U/L (0-32); Blood Urea Nitrogen 13 mg/dL (6-20); Calcium 8.9 mg/dL (8.5-10.5); Carbon Dioxide 23 mmol/L (22-29); Chloride 106 mmol/L (98-107); Chol HDL Ratio 4.42 mg/dL (0.0-4.40); Cholesterol 106 mg/dL (0-200); Eosinophils 3 %; Globulin 3.2 g/dL (1.3-4.6); Glomerular Filtration Rate 56.7 mL/min (90-130); Glucose 177 mg/dL (65-115); HDL Cholesterol 24 mg/dL (60-100); LDL Cholesterol Calculated 48 mg/dL (50-129); Lymphocytes 35 %; Monocytes Absolute 0.4 10^3/cmm (0.1-0.6); Osmolality Calculated 290 mOsm/kg (285-295); Potassium 5.2 mmol/L (3.5-5.1); Segmented Neutrophils 53 %; Sodium 138 mmol/L (136-145); Total Bilirubin 0.2 mg/dL (0.15-1.2); Total Cells Counted 100 (0-100); Total Protein 6.5 g/dL (6.6-8.7); Triglycerides 168 mg/dL (0-150); VLDL Cholestrol Calculation 34 mg/dL (0-30)
[2022-09-24 06:05] LABS: Microcytosis Trace
[2022-09-24 06:08] LABS: Creatinine Clr Calc Pharmacy 67.8188
[2022-09-24 06:09] LABS: Absolute Neutrophil 5.4 10^3/cmm (1.4-6.5); Platelet Estimate Normal (Normal)
[2022-09-24 06:27] LABS: Glucose Point of Care 149 mg/dL (70-110)
[2022-09-24] MEDS: oxyCODONE-APAP 5-325 mg Tablet 1 TAB PO ×2 (08:02→20:54)
[2022-09-24] MEDS: nicotine 4 mg lozenge MUCOUS MEM (08:02)
[2022-09-24] MEDS: amlodipine 5 mg Tablet PO (08:02)
[2022-09-24] MEDS: pantoprazole DR 40 mg Tablet PO (08:02)
[2022-09-24] MEDS: metoprolol tartrate 50 mg Tablet PO ×2 (08:02→18:36)
[2022-09-24 11:20] LABS: Glucose Point of Care 235 mg/dL (70-110)
[2022-09-24] MEDS: insulin lispro 100 unit/1 mL SUBCUT ×2 (12:07→22:23)
[2022-09-24] MEDS: nicotine 2 mg Gum 4 MG BUCCAL ×2 (12:31→22:21)
--- NOTE | 2022-09-24 14:10 | P.CONIM_ITS ---
Providers/Reason For Consult Consulting Physician/Specialty*: Dr. Jensen/cardiothoracic surgery Reason for Consult*: Right gluteal abscess Requesting Physician: Dr. Matta Attending Physician: Papi Matta MD Primary Care Provider: ALEJANDRO Moore History of Present Illness History of Present Illness Lisa Duke is a 61 year old female whom I was asked to see about a right gluteal abscess. She states, by history, that has been present probably for about 2 weeks. She presented to the emergency department 2 days ago and was admitted for swelling and discomfort of her right gluteal region. This is continued to progress and has had some purulent foul-smelling discharge though no prior procedures or recurrences have been noted. Abdomen/pelvic CT scan from September 22 revealed: 1. ? 27 mm collection of subcutaneous air and edema in the right gluteal crease suggestive of an ulcer and/or infectious process, negative for fluid collection seen.? A portion of this appears to extend to the region of the anus.? 2. ? Hepatic steatosis. 3. ? Left adrenal hypertrophy. 4. ? Left kidney cyst, negative for follow up advised. ? Patient been receiving quarter inch Nu Gauze packing daily and nurses report substantial drainage with each packing. I have personally reviewed the CT scan and notes what appears to be 2 separate collections of air in this region with a septation between the 2. The more superficial area of collection and does appear to extend to the epidermal surface probably represents the amount of drainage and ability to pack as noted by the nurse. The slightly more medial lesion I do not find a connection or communication to the skin or to this more superficial region. I believe she would benefit from exploration under conscious sedation and consideration for try to widely open this region to confirm that it has been adequately drained. Blood cultures have been drawn which are negative to date though I do not see a culture of any drainage material. Presenting white count 11.7, now down to 10.1. Current antibiotics include Zosyn and vancomycin. She does report less tenderness and is able to sit up for the past 24 hours. She is eager for discharge as her daughter has delivered a child yesterday. She resides in [place]. Review of Systems Const: Reports: body aches and fatigue; Denies: fever(s) or chills Card: Denies: chest pain, palpitations or irregular heart rhythm Resp: Denies: dyspnea or productive cough GI: Denies: abdominal pain, nausea or vomiting : Denies: flank pain, difficulty voiding or dysuria Skin/Breast: Reports: erythema (Right gluteal region) Neuro: Denies: headache(s) or numbness in extremities Medications/Allergies Home Medications Medication Instructions Recorded Confirmed Last Taken Type baclofen 10 mg tablet 10 mg PO DAILY PRN Pain 04/26/20 09/23/22 Unknown History cetirizine 10 mg capsule (All Day 10 mg PO DAILY 04/26/20 09/23/22 Unknown History Allergy (cetirizine)) glipizide 5 mg tablet 5 mg PO DAILY 04/26/20 09/23/22 Unknown History lisinopril 2.5 mg tablet 2.5 mg PO DAILY 04/26/20 09/23/22 Unknown History metoprolol tartrate 50 mg tablet 75 mg PO BID 04/26/20 09/23/22 Unknown History omeprazole 20 mg capsule,delayed 20 mg PO BID 04/26/20 09/23/22 Unknown History release semaglutide 0.25 mg or 0.5 mg (2 1 mg SUBCUT Q7D 04/26/20 09/23/22 Unknown History mg/1.5 mL) subcutaneous pen injector ([employer]) simvastatin 20 mg tablet 20 mg PO DAILY 09/23/22 09/23/22 Unknown History sulfamethoxazole 800 2 tab PO DAILY 09/23/22 09/23/22 Unknown History mg-trimethoprim 160 mg tablet Allergies Allergy/AdvReac Type Severity Reaction Status Date / Time dulaglutide [From [facility]] Allergy nausea Verified 12/09/21 18:49 Current Medications Generic Name Dose Route Start Last Admin Trade Name Raphaelq PRN Reason Stop Dose Admin Amlodipine Besylate 5 mg 09/23/22 09:00 09/24/22 08:02 Amlodipine 5 Mg Tablet PO 5 mg DAILY INDIO Administration Enoxaparin Sodium 40 mg 09/23/22 14:30 09/24/22 13:37 Enoxaparin 40 Mg/0.4 Ml Syringe SUBCUT Not Given Q24H INDIO Piperacillin Sod/Tazobactam 50 mls @ 12.5 mls/hr 09/23/22 00:00 09/24/22 12:05 Sod 3.375 gm/ Sodium Chloride IV Infused Q8H INDIO Infusion Protocol Vancomycin HCl 1,000 mg/ 250 mls @ 250 mls/hr 09/23/22 12:00 09/24/22 07:04 Sodium Chloride IV Infused Q18H INDIO Infusion Sodium Chloride 1,000 mls @ 75 mls/hr 09/22/22 18:33 09/24/22 13:38 Sodium Chloride 0.9% IV 125 mls/hr .[id number] INDIO Infusion Insulin Glargine 20 unit 09/23/22 21:00 09/23/22 20:33 Insulin Glargine 100 Units/1 Ml SUBCUT 20 unit BEDTIME INDIO Administration Insulin Human Lispro 0 unit 09/22/22 18:00 09/24/22 12:07 Insulin Lispro 100 Unit/1 Ml SUBCUT 6 unit WM&BEDTIME INDIO Administration Protocol Metoprolol Tartrate 50 mg 09/22/22 18:00 09/24/22 08:02 Metoprolol Tartrate 50 Mg Tablet PO 50 mg BID INDIO Administration Nicotine Polacrilex 4 mg 09/24/22 12:30 09/24/22 12:31 Nicotine 2 Mg Gum BUCCAL 4 mg Q2H PRN Administration NICOTINE CRAVINGS Oxycodone/Acetaminophen 1 tab 09/23/22 13:35 09/24/22 08:02 Oxycodone-Apap 5-325 Mg Tablet PO 1 tab Q6H PRN Administration SEVERE PAIN Pantoprazole Sodium 40 mg 09/23/22 09:00 09/24/22 08:[address] 40 Mg Tablet PO 40 mg DAILY INDIO Administration PFSH Acute PFSH: Medical History Anxiety Breast lump R side in 1300 position Depression Diabetes type 2 Diverticulosis of duodenum HTN (hypertension) No pertinent past medical history neghx; thyroid,dvt/pe Tachycardia Ulcer Urgency incontinence Surgical History History of fracture of right ankle ORIF Hx of tubal ligation (~1994) Family History Mother Diabetes Hypertension Grandmother Diabetes Paternal Father Hypertension Family/Other Heart disease Paternal Aunt, Paternal Uncle Denies family history of Colon cancer Ovarian cancer Clotting disorder Hypercholesteremia Breast cancer Bleeding disorder Uterine cancer Thyroid disease Stroke Social History Smoking and tobacco status: current every day smoker Additional social history: - Tobacco use: current- rolls her own cigarettes--unknown amount, started smoking at age 21 Alcohol use: None Drug use: Previous marijuana in her 20's Vitals/I&O/Wt Last Vital Signs Temp 98.1 F 09/24/22 12:00 Pulse 74 09/24/22 12:00 Resp 16 09/24/22 12:00 BP 117/79 09/24/22 12:00 Pulse Ox 98 09/24/22 12:00 O2 Del Method 09/24/22 12:00 09/23/22 09/24/22 09/24/22 22:59 06:59 14:59 Intake Total 1250 / 3326.25 150 / 3476.25 1868.75 / 1868.75 Output Total 800 / 800 800 / 1600 600 / 600 Balance 450 / 2526.25 -650 / 1876.25 1268.75 / 1268.75 Weight last 48 hrs Weight 210 lb Weight 210 lb Physical Exam HENMT: COMMON NORMALS: normocephalic, atraumatic, hearing grossly normal bilaterally, external ears normal and Normal external nose present HEAD & SCALP: normocephalic and atraumatic NOSE: Normal external nose present EXTERNAL EAR: Yes external ears normal Eye: COMMON NORMALS: Equal, round and reactive pupils present, EOMs intact bilaterally and no scleral icterus PUPIL: Yes Equal, round and reactive pupils present Neck/C-Spine: COMMON NORMALS: full ROM, no lymphadenopathy and supple Resp: COMMON NORMALS: normal respiratory effort, No retractions and No use of accessory muscles Extremity: NARRATIVE EXTREMITY EXAM: Erythematous and brawny edema to the medial right gluteal region with a small area of fluctuation medially. There is an opening which expresses a small amount of cloudy colored material. I do believe this would benefit from more formal exploration under the appropriate operative setting. Data 09/24/22 05:28 09/24/22 05:28 Micro: Microbiology 09/22/22 16:40 Blood Culture - Preliminary Blood NEGATIVE TO DATE 09/22/22 16:47 Blood Culture - Preliminary Blood A&P Assessment and plan (1) Cellulitis, gluteal, right: Right gluteal abscess. I recommend formal exploration with incision and drainage under monitored anesthesia. As she has had breakfast and lunch, we cannot do this under general. I do think that expeditious correction would be of most benefit to confirm adequate drainage and hasten recovery. We will tentatively plan for this to be performed with local anesthesia and conscious sedation around 4 PM today. Rationale for this was frankly discussed. Details of risk the procedure also reviewed. He stated understanding wishes to proceed. Consult Attestations Medical Necessity Statement: Right gluteal abscess Coding Level of Care Code Acute Code for [facility] Diagnoses Cellulitis, gluteal, right L03.317
--- NOTE | 2022-09-24 14:49 | P.PN_ITS ---
Subjective Subjective: No acute events overnight. Today morning patient seen sitting up in bedside having her meal. She states she is feeling a lot better. Able to ambulate but still has tenderness and not able to sit completely straight. Patient denies any nausea vomiting, headache. Has remained hemodynamically st able and afebrile. Overnight patient's dressing came off with minimal drainage. Vitals/I&O/Wt Last Vital Signs Temp 98.1 F 09/24/22 12:00 Pulse 74 09/24/22 12:00 Resp 16 09/24/22 12:00 BP 117/79 09/24/22 12:00 Pulse Ox 98 09/24/22 12:00 O2 Del Method 09/24/22 12:00 09/23/22 09/24/22 09/24/22 22:59 06:59 14:59 Intake Total 1250 / 3326.25 150 / 3476.25 1868.75 / 1868.75 Output Total 800 / 800 800 / 1600 600 / 600 Balance 450 / 2526.25 -650 / 1876.25 1268.75 / 1268.75 Weight last 48 hrs Weight 95.254 kg Weight 95.254 kg Physical Exam Const: COMMON NORMALS: patient oriented x3 HENMT: COMMON NORMALS: normocephalic, atraumatic and hearing grossly normal bilaterally HEAD & SCALP: normocephalic and atraumatic Resp: COMMON NORMALS: normal respiratory effort, No retractions, No use of accessory muscles and clear to auscultation bilaterally EFFORT & INSPECTION: Yes symmetric chest movement AUSCULTATION: clear to auscultation bilaterally Cardio: COMMON NORMALS: regular rate, regular rhythm, S1 normal heart sound present, S2 normal heart sound present, No gallops present (Cardio), No murmurs present (Cardio), No rub (Cardio) and Peripheral pulses 2+ throughout RATE: regular rate RHYTHM: regular rhythm HEART SOUNDS: S1 normal heart sound present and S2 normal heart sound present PERIPHERAL PULSES: Peripheral pulses 2+ throughout GI: COMMON NORMALS: Normal to inspection, nondistended, normoactive bowel sounds present, Soft to palpation, non-tender, No hepatosplenomegaly present and no masses AUSCULTATION: Yes normoactive bowel sounds PALPATION: Yes Soft to palpation and Yes No hepatosplenomegaly present RECTAL EXAM: deferred Extremity: COMMON NORMALS: no clubbing, cyanosis or edema and no pedal edema Neuro: COMMON NORMALS: patient oriented x3 Data 09/24/22 05:28 09/24/22 05:28 Micro: Microbiology 09/23/22 11:00 MRSA Culture - Final Nose 09/22/22 16:40 Blood Culture - Preliminary Blood NEGATIVE TO DATE 09/22/22 16:47 Blood Culture - Preliminary Blood A&P Assessment and plan (1) Cellulitis, gluteal, right: (2) Abscess of skin or subcutaneous tissue: (3) SIRS (systemic inflammatory response syndrome): (4) Uncontrolled type 2 diabetes mellitus: (5) HTN (hypertension): (6) Hyponatremia: Plan 61 year old female with past medical history of hypertension diabetes came in today with chief complaint worsening of right buttock swelling, it started about 2 weeks back, since then it has progressively worsening and currently it is having purulent foul-smelling discharge.she also reports fever at home, was being managed as outpatient on p.o. Bactrim, has failed to respond. Assessment: Right buttock cellulitis possible developing abscess: Appreciate CT results. No concerns for fluid collection/abscess for now but does have concerns for extend to the region of anus. Appreciate CRP. Blood cultures so far negative. MRSA swab negative. We will consult Dr. Jensen for further recommendation regarding wound care possible debridement. Continue Zosyn. Discontinue vancomycin. Uncontrolled type 2 diabetes mellitus: A1c 9.8. Patient supposed to be on glip izide and Ozempic at home. Not using Ozempic for last 2 to 4 weeks as not available. Patient does complain of nausea with Ozempic. Discussed in detail for tighter sugar controls and possible discharge on insulin. Patient verbalizes understanding and is agreeable. Increase Lantus to 25 units at bedtime. Continue with sliding scale at low-dose protocol before meals and at bedtime. History of hypertension: Goal blood pressure less than 140/90 mmHg. Lisinopril withheld on admission given concerns for ERIN. Continue amlodipine for now. Hyponatremia: Resolved. Continue gentle IV addition normal saline 75 cc an hour Acute kidney injury: Baseline creatinine seems to be normal. Resolved. Medical reconciliation done for nephrotoxic drugs. CODE STATUS: Full code Carb consistent cardiac diet. DVT prophylaxis on Lovenox Protonix for PUD prophylaxis Tylenol as needed, oxycodone 5 mg every 6 hours as needed for pain management. Attestations Medical Necessity Statement*: Requires further hospitalization for management of right buttock cellulitis with possible abscess requiring debridement, uncontr olled diabetes mellitus Diagnoses Cellulitis, gluteal, right L03.317 Abscess of skin or subcutaneous tissue L02.91 SIRS (systemic inflammatory response syndrome) R65.10 Uncontrolled type 2 diabetes mellitus HTN (hypertension) I10 Hyponatremia E87.1
[2022-09-24 15:32] LABS: Glucose Point of Care 176 mg/dL (70-110)
--- NOTE | 2022-09-24 15:34 | P.ANESASSM_ITS ---
Pre-Anesthetic Assessment Height/Weight: Height 1.63 m Weight 95.254 kg Temp Pulse Resp BP Pulse Ox O2 Del Method 98.1 F 74 16 117/79 98 09/24/22 12:00 09/24/22 12:00 09/24/22 12:00 09/24/22 12:00 09/24/22 12:00 09/24/22 12:00 Operation Date: 09/24/22 16:10 Proposed Procedures p Incision And Drainage of right gluteal abscess(Right) - Rolan Jensen MD Familial anesthetic complications: None Was Beta Funmi taken within 24 hours: Yes Was Clonidine taken within 24 hours: N/A Last intake: Intake Last Liquid Date 09/24/22 Last Liquid Time 12:00 Last Solid Date 09/24/22 Last Solid Time 12:00 Social No alcohol and No tobacco Exam alert, oriented x 3, clear to auscultation bilaterally and regular rate & rhythm Airway Mallampati: Class III Dentition: chipped CV/HEM Hypertension GI Gastroesophageal Reflux Disease Metabolic Diabetes Mellitus, Hyperlipidemia and Morbid Obesity Anesthetic Plan ASA status: 3 Anesthesia: Nurse-admin mod sedation Risk of > 500 ml blood loss (7ml/kg in children): No Medications/Allergies Home Medications Medication Instructions Recorded Confirmed Last Taken Type baclofen 10 mg tablet 10 mg PO DAILY PRN Pain 04/26/20 09/23/22 Unknown History cetirizine 10 mg capsule (All Day 10 mg PO DAILY 04/26/20 09/23/22 Unknown History Allergy (cetirizine)) glipizide 5 mg tablet 5 mg PO DAILY 04/26/20 09/23/22 Unknown History lisinopril 2.5 mg tablet 2.5 mg PO DAILY 04/26/20 09/23/22 Unknown History metoprolol tartrate 50 mg tablet 75 mg PO BID 04/26/20 09/23/22 Unknown History omeprazole 20 mg capsule,delayed 20 mg PO BID 04/26/20 09/23/22 Unknown History release semaglutide 0.25 mg or 0.5 mg (2 1 mg SUBCUT Q7D 04/26/20 09/23/22 Unknown History mg/1.5 mL) subcutaneous pen injector (Ozempic) simvastatin 20 mg tablet 20 mg PO DAILY 09/23/22 09/23/22 Unknown History sulfamethoxazole 800 2 tab PO DAILY 09/23/22 09/23/22 Unknown History mg-trimethoprim 160 mg tablet Allergies Allergy/AdvReac Type Severity Reaction Status Date / Time dulaglutide [From [facility]] Allergy nausea Verified 12/09/21 18:49 Current Medications Generic Name Dose Route Start Last Admin Trade Name Raphaelq PRN Reason Stop Dose Admin Amlodipine Besylate 5 mg 09/23/22 09:00 09/24/22 08:02 Amlodipine 5 Mg Tablet PO 5 mg DAILY INDIO Administration Enoxaparin Sodium 40 mg 09/23/22 14:30 09/24/22 13:37 Enoxaparin 40 Mg/0.4 Ml Syringe SUBCUT Not Given Q24H INDIO Piperacillin Sod/Tazobactam 50 mls @ 12.5 mls/hr 09/23/22 00:00 09/24/22 12:05 Sod 3.375 gm/ Sodium Chloride IV Infused Q8H INDIO Infusion Protocol Sodium Chloride 1,000 mls @ 75 mls/hr 09/22/22 18:33 09/24/22 15:16 Sodium Chloride 0.9% IV Infused .[id number] INDIO Infusion Insulin Glargine 20 unit 09/23/22 21:00 09/23/22 20:33 Insulin Glargine 100 Units/1 Ml SUBCUT 20 unit BEDTIME INDIO Administration Insulin Human Lispro 0 unit 09/22/22 18:00 09/24/22 12:07 Insulin Lispro 100 Unit/1 Ml SUBCUT 6 unit WM&BEDTIME INDIO Administration Protocol Metoprolol Tartrate 50 mg 09/22/22 18:00 09/24/22 08:02 Metoprolol Tartrate 50 Mg Tablet PO 50 mg BID INDIO Administration Nicotine Polacrilex 4 mg 09/24/22 12:30 09/24/22 12:31 Nicotine 2 Mg Gum BUCCAL 4 mg Q2H PRN Administration NICOTINE CRAVINGS Oxycodone/Acetaminophen 1 tab 09/23/22 13:35 09/24/22 08:02 Oxycodone-Apap 5-325 Mg Tablet PO 1 tab Q6H PRN Administration SEVERE PAIN Pantoprazole Sodium 40 mg 09/23/22 09:00 09/24/22 08:[address] 40 Mg Tablet PO 40 mg DAILY INDIO Administration [facility] Anesthesia Medical History Anxiety Breast lump R side in 1300 position Depression Diabetes type 2 Diverticulosis of duodenum HTN (hypertension) No pertinent past medical history neghx; thyroid,dvt/pe Tachycardia Ulcer Urgency incontinence Surgical History History of fracture of right ankle ORIF Hx of tubal ligation (~1994) Family History Mother Diabetes Hypertension Grandmother Diabetes Paternal Father Hypertension Family/Other Heart disease Paternal Aunt, Paternal Uncle Denies family history of Colon cancer Ovarian cancer Clotting disorder Hypercholesteremia Breast cancer Bleeding disorder Uterine cancer Thyroid disease Stroke Social History Smoking and tobacco status: current every day smoker Additional social history: - Tobacco use: current- rolls her own cigarettes--unknown amount, started smoking at age 21 Alcohol use: None Drug use: Previous marijuana in her 20's Data Anesthesia 09/24/22 05:28 09/24/22 05:28 Short CBC 09/22/22 09/23/22 09/24/22 Range/Units 16:35 04:54 05:28 WBC 11.7 H 10.1 H 10.1 H (4.0-10.0) 10^3/uL Hgb 11.6 11.7 11.8 (11.5-15.3) g/dL Hct 36.8 L 37.7 38.0 (37.0-47.0) % MCV 85.0 86.1 84.6 (81-99) fl Plt Count 367 373 394 (130-400) 10^3/cmm Neut % (Auto) 73.6 57.9 % Neut # (Auto) 8.58 H 5.87 (1.8-7.7) 10^3/uL BMP 09/22/22 09/23/22 09/24/22 16:35 04:54 05:28 Sodium 133 L 135 L 138 Potassium 4.6 5.1 5.2 H Chloride 99 101 106 Carbon Dioxide 21 L 24 23 BUN 22 H 13 13 Creatinine 1.1 H 0.9 1.0 H Glucose 200 H 111 177 H Calcium 8.8 8.9 8.9 Liver Function 09/24/22 Range/Units 05:28 Total Bilirubin 0.2 (0.15-1.2) mg/dL AST 14 (0-32) U/L ALT 13 (0-33) U/L Alkaline Phosphatase 63 (35-105) U/L Albumin 3.3 L (3.5-5.2) g/dL Coags 09/23/22 09/23/22 04:54 04:54 ESR 19 H C-Reactive Protein 63.8 H Microbiology 09/23/22 11:00 MRSA Culture - Final Nose 09/22/22 16:40 Blood Culture - Preliminary Blood NEGATIVE TO DATE 09/22/22 16:47 Blood Culture - Preliminary Blood Cardiac Studies: No Data to Display
[2022-09-24] MEDS: sodium chloride 0.9% 1,000 ML 30 ML IV (15:43)
[2022-09-24] MEDS: lidocaine 2% INJ 20 mL INJECTION (16:46)
[2022-09-24] MEDS: ceFAZolin 1,000 mg SDV 1000 MG IRRIGATION (16:46)
--- NOTE | 2022-09-24 17:26 | P.OP_ITS ---
Operative Report Date of procedure: September 24, 2022 Pre-op diagnosis: Right gluteal abscess Post-op diagnosis: same Procedure done: Incision and drainage of right gluteal abscess Specimens removed/disposition: Swab cultures x2 Specimen culture x1 Pathology: none sent Surgeon: Rolan Jensen Anesthesia: MAC and Local Complications: None Condition: stable Disposition: PACU Brief History: Ms. Duke is a 61-year-old diabetic female who has been hospitalized for 2 days now with a right gluteal abscess with discomfort now for over [address] scan from 2 days ago revealed a 2.7 cm collection of subcutaneous air and edema in the right gluteal crease suggestive of an ulcer and or infectious process though negative for fluid collection seen a portion of the appears to extend to the region toward the anal verge. I have recommended formal exploration under anesthesia as there has been reported purulent drainage from a small opening at this region. Procedure: Patient was taken to the operating room placed in the left lateral decubitus position over protective padding. She received IV conscious sedation with anesthesia monitoring. Her entire right gluteal region was sterilely prepped and draped. 1% lidocaine was administered as a field block in the region of the induration and erythema. Following this the small opening was probed with a hemostat and extended much deeper than originally appreciated. Extension continued at least 7 cm both deep as well as cranially. Lidocaine was then infiltrated in the epidermal fashion right upper 15 and #10 scalpel blade was utilized to incise the skin down into this abscess cavity. Material was collected both by swab and by tissue for culture. Only small amount of actual purulence was encountered though there was a clearly defined cavity consistent with abscess. Once this was for earlier explored confirmed to be appropriately opened, debridement was performed with Metzenbaum scissors followed by electrocautery being utilized to control bleeding. Then the wound was irrigated with antibiotic solution. The wound was subsequently packed utilizing two 4 inch Marjorie gauze to fully fill the cavity. Once completed sterile dressings were applied. She returned to the supine position. She tolerated procedure quite well and was able to converse with her anesthesia colleagues throughout the encounter. She was then transported to the postoperative care unit. I did newspaper delivery counselor with her at the completion of the procedure. We will assess her tomorrow though we may again require IV sedation for pain management to allow for packing of this wound tomorrow.
[2022-09-24] MEDS: HYDROmorphone 1 mg/mL INJ 1 mL 0.5 MG IVP (17:33)
--- NOTE | 2022-09-24 18:00 | ANE.PACU2 ---
Inpatient post-anesthesia follow up: Airway intact: Yes Vital signs: Temperature 97.9 F Pulse Rate 74 Respiratory Rate 17 Blood Pressure 108/68 Pulse Oximetry 97 Oxygen Delivery Me thod Room Air Oxygen Flow Rate Fraction of Inspir ed Oxygen Hydration adequate: Yes Nausea and vomiting: No Pain level: 1 Mental status: Baseline
[2022-09-24 19:01] LABS: Glucose Point of Care 126 mg/dL (70-110)
[2022-09-24] MEDS: insulin glargine 100 units/1 mL 20 UNIT SUBCUT (21:08)
[2022-09-24] MEDS: morphine 4 mg/mL SDV 1 mL 2 MG IVP (22:21)
[2022-09-25] VITALS (20 sets, daily range): BP systolic 94–145; BP diastolic 59–92; PULSE 57–97; RESP 14–23; TEMP 36.3–36.8; O2SAT 95–100
[2022-09-25] MEDS: piperacillin-tazobactam 3.375 GM in sodium chloride 0.9% (plus) 50 ML IV ×4 (00:16→23:40)
[2022-09-25 05:06] LABS: Glucose Point of Care 271 mg/dL (70-110)
[2022-09-25 05:48] LABS: Basophils # 0.1 10^3/uL (0.0-0.1); Basophils % 0.7 %; Eosinophils # 0.4 10^3/uL (0.0-0.8); Eosinophils % 3.7 %; Hematocrit 36.6 % (37.0-47.0); Hemoglobin 11.3 g/dL (11.5-15.3); Lymphocytes # 3.4 10^3/uL (0.8-4.8); Lymphocytes % 33.6 %; Mean Corpuscular HGB Conc 30.9 g/dL (30.0-36.0); Mean Corpuscular Hemoglobin 26.3 pg (28.0-34.0); Mean Corpuscular Volume 85.3 fl (81-99); Mean Platelet Volume 9.8 fL (7.4-10.4); Monocytes # 0.6 10^3/uL (0.2-0.9); Monocytes % 5.6 %; Neutrophils # 5.59 10^3/uL (1.8-7.7); Neutrophils % 55.1 %; Nucleated Red Blood Cells % 0 %; Platelet Count 389 10^3/cmm (130-400); Red Blood Count 4.29 10^6/uL (4.1-5.3); Red Cell Distribution Width 13.6 % (12.1-15.1); White Blood Count 10.1 10^3/uL (4.0-10.0)
[2022-09-25 06:08] LABS: Alanine Aminotransferase 13 U/L (0-33); Albumin Level 3.2 g/dL (3.5-5.2); Alkaline Phosphatase 77 U/L (35-105); Anion Gap 13.6 (5-19); Aspartate Amino Transferase 15 U/L (0-32); Blood Urea Nitrogen 11 mg/dL (6-20); Calcium 8.6 mg/dL (8.5-10.5); Carbon Dioxide 22 mmol/L (22-29); Chloride 107 mmol/L (98-107); Globulin 2.8 g/dL (1.3-4.6); Glomerular Filtration Rate 56.7 mL/min (90-130); Glucose 190 mg/dL (65-115); Osmolality Calculated 290 mOsm/kg (285-295); Potassium 4.6 mmol/L (3.5-5.1); Sodium 138 mmol/L (136-145); Total Bilirubin 0.2 mg/dL (0.15-1.2)
[2022-09-25 06:48] LABS: Creatinine Clr Calc Pharmacy 67.8188
--- NOTE | 2022-09-25 07:25 | PM.PN ---
Subjective Subjective: Postop day #1 status post I&D right gluteal abscess. Postop discomfort is under good control. She remains eager for discharge. She has been inquiring about when she can travel as her daughter just delivered a grandchild 2 days ago. Travel would be to [place]. She does reside with her whom is legally blind and would not be able to assist with wound care management. Vitals/I&O/Wt Last Vital Signs Temp 97.7 F 09/25/22 04:00 Pulse 85 09/25/22 04:00 Resp 17 09/25/22 04:00 BP 110/66 09/25/22 04:00 Pulse Ox 95 09/25/22 04:00 O2 Del Method 09/25/22 04:00 09/24/22 09/25/22 09/25/22 22:59 06:59 14:59 Intake Total 368.167 / 2236.917 50 / 2286.917 Output Total 25 / 625 Balance 343.167 / 1611.917 50 / 1661.917 Data 09/25/22 05:20 09/25/22 05:20 Micro: Microbiology 09/24/22 20:35 Blood Culture - Preliminary Blood SPECIMEN COLLECTED 09/24/22 20:35 Blood Culture - Preliminary Blood SPECIMEN COLLECTED 09/23/22 11:16 Anaerobic Culture - Preliminary Buttock 09/22/22 16:47 Blood Culture - Preliminary Blood Staphylococcus species 09/23/22 11:16 Wound Culture - Preliminary Buttock 09/22/22 16:47 Wound Culture - Preliminary Buttock 09/23/22 11:00 MRSA Culture - Final Nose A&P Assessment and plan (1) Abscess, gluteal, right: Postop day #1 status post I&D right gluteal abscess Plan I would recommend home health services. She also would benefit from 1 more dressing change prior to discharge though I think this will require some IV sedation as I suspect will be quite tender. This will be a challenge for home care of this wound related to the inability of her to assist with wound management related to his blindness. She could report to wound care clinic daily for dressing changes and she does reside in [place], though the biggest benefit would be with home health services for assistance. I think this will take some time for this wound to heal as it is quite deep. Attestations Medical Necessity Statement*: Status post I&D right gluteal abscess Coding Level of Care Code Acute Code for [facility] Diagnoses Abscess, gluteal, right L02.31
[2022-09-25] MEDS: oxyCODONE-APAP 5-325 mg Tablet 1 TAB PO ×2 (08:32→21:30)
[2022-09-25] MEDS: pantoprazole DR 40 mg Tablet PO (08:32)
[2022-09-25] MEDS: amlodipine 5 mg Tablet PO (08:32)
[2022-09-25] MEDS: metoprolol tartrate 50 mg Tablet PO ×2 (08:32→17:25)
[2022-09-25 09:59] LABS: Glucose Point of Care 177 mg/dL (70-110)
[2022-09-25 11:17] LABS: Glucose Point of Care 148 mg/dL (70-110)
[2022-09-25] MEDS: fentaNYL 50 mcg/mL INJ 2mL IVP (12:35)
[2022-09-25] MEDS: midazolam 1 mg/mL INJ 2 mL 2 MG IVP (12:35)
--- NOTE | 2022-09-25 13:32 | PC.SOCIAL ---
IMM Update pg 2 of IMM updated and reviewed w/ patient. Copy provided and Copy dated, initialed and placed in chart.
[2022-09-25] MEDS: morphine 4 mg/mL SDV 1 mL 2 MG IVP ×2 (15:34→21:00)
[2022-09-25 17:05] LABS: Glucose Point of Care 205 mg/dL (70-110)
--- NOTE | 2022-09-25 17:15 | P.PN_ITS ---
Subjective Subjective: No acute events overnight. Patient underwent deep exploration of the wound with packing at the OR with Dr. Jensen. Patient tolerated the procedure well. Today morning seen laying in bed with family or friend at bedside. Patient states she is feeling a lot better. Denies any nausea vomiting, headache. States pain is well controlled. Patient is thankful and happy for the care getting at the hospital. Vitals/I&O/Wt Last Vital Signs Temp 97.9 F 09/25/22 16:00 Pulse 80 09/25/22 16:00 Resp 18 09/25/22 16:00 BP 117/79 09/25/22 16:00 Pulse Ox 97 09/25/22 16:00 O2 Del Method 09/25/22 16:00 O2 Flow Rate 2 09/25/22 12:45 09/25/22 09/25/22 09/25/22 06:59 14:59 22:59 Intake Total 50 / 2286.917 770 / 770 Balance 50 / 1661.917 770 / 770 Physical Exam Const: COMMON NORMALS: patient oriented x3 HENMT: COMMON NORMALS: normocephalic, atraumatic and hearing grossly normal bilaterally HEAD & SCALP: normocephalic and atraumatic Resp: COMMON NORMALS: normal respiratory effort, No retractions, No use of accessory muscles and clear to auscultation bilaterally EFFORT & INSPECTION: Yes symmetric chest movement AUSCULTATION: clear to auscultation bilaterally Cardio: COMMON NORMALS: regular rate, regular rhythm, S1 normal heart sound present, S2 normal heart sound present, No gallops present (Cardio), No murmurs present (Cardio), No rub (Cardio) and Peripheral pulses 2+ throughout RATE: regular rate RHYTHM: regular rhythm HEART SOUNDS: S1 normal heart sound present and S2 normal heart sound present PERIPHERAL PULSES: Peripheral pulses 2+ throughout GI: COMMON NORMALS: Normal to inspection, nondistended, normoactive bowel soun ds present, Soft to palpation, non-tender, No hepatosplenomegaly present and no masses AUSCULTATION: Yes normoactive bowel sounds PALPATION: Yes Soft to palpation and Yes No hepatosplenomegaly present RECTAL EXAM: deferred Back/Pelvis: OTHER: Right gluteal region surgically packed without any soakage. Extremity: COMMON NORMALS: no clubbing, cyanosis or edema and no pedal edema Neuro: COMMON NORMALS: patient oriented x3 Data 09/25/22 05:20 09/25/22 05:20 Micro: Microbiology 09/23/22 11:16 Anaerobic Culture - Preliminary Buttock 09/22/22 16:47 Wound Culture - Final Buttock 09/24/22 16:57 Gram Stain - Final Buttock Tissue Culture - Preliminary 09/24/22 16:50 Gram Stain - Final Buttock Wound Culture - Preliminary 09/23/22 11:16 Wound Culture - Preliminary Buttock 09/24/22 20:35 Blood Culture - Preliminary Blood SPECIMEN COLLECTED 09/24/22 20:35 Blood Culture - Preliminary Blood SPECIMEN COLLECTED 09/22/22 16:47 Blood Culture - Preliminary Blood Staphylococcus species 09/23/22 11:00 MRSA Culture - Final Nose A&P Assessment and plan (1) Abscess, gluteal, right: (2) Bacteremia due to Staphylococcus: (3) Cellulitis, gluteal, right: (4) SIRS (systemic inflammatory response syndrome): (5) Uncontrolled type 2 diabetes mellitus: (6) HTN (hypertension): (7) Hyponatremia: Plan 61 year old female with past medical history of hypertension diabetes came in today with chief complaint worsening of right buttock swelling, it started about 2 weeks back, since then it has progressively worsening and currently it is having purulent foul-smelling discharge.she also reports fever at home, was being managed as outpatient on p.o. Bactrim, has failed to respond. Assessment: Right buttock abscess/cellulitis: Appreciate CT results. No concerns for fluid collection/abscess for now but does have concerns for extend to the region of anus. Appreciate Dr. Jensen's recommendation and help. Continue with wound care as per the recommendations. Continue with Zosyn. Staphylococcal bacteremia: Blood culture from admission 2 out of 4 bottles positive for staphylococcal species. Awaiting coag positive or negative. For now continue with Zosyn. Repeat blood cultures sent on 09/24. So far negative. Most likely patient will need IV antibiotics for overall 14 days upon discharge. Repeat blood cultures come back positive we will plan for echocardiogram to rule out infective endocarditis. Uncontrolled type 2 diabetes mellitus: A1c 9.8. Patient supposed to be on glipizide and Ozempic at home. Not using Ozempic for last 2 to 4 weeks as not available. Patient does complain of nausea with Ozempic. Discussed in detail for tighter sugar controls and possible discharge on insulin. Patient verbalizes understanding and is agreeable. Increase Lantus to 25 units at bedtime. Continue with sliding scale at low-dose protocol before meals and at bedtime. History of hypertension: Goal blood pressure less than 140/90 mmHg. Lisinopril withheld on admission given concerns for ERIN. Continue amlodipine, metoprolol for now. Hyponatremia: Resolved. Continue gentle IV addition normal saline 75 cc an hour Acute kidney injury: Baseline creatinine seems to be normal. Resolved. Medical reconciliation done for nephrotoxic drugs. CODE STATUS: Full code Carb consistent cardiac diet. DVT prophylaxis on Lovenox Protonix for PUD prophylaxis Tylenol as needed, oxycodone 5 mg every 6 hours as needed for pain management. Discharge planning: Given the extensive nature and location of the wound and the abscess patient is most likely going to need extensive wound care as an outpatient to prevent from worsening along with IV antibiotics for overall 14 days. Patient does not have good social support at home to take care of wound care. Discussed the need in detail with the patient and she is agreeable for SNF placement for short-term. Case management alerted. Attestations Medical Necessity Statement*: Patient requires further hospitalization for management of right gluteal abscess, staphylococcal bacteremia in setting of uncontrolled diabetes mellitus as she requires significant wound care and IV antibiotics. Diagnoses Abscess, gluteal, right L02.31 Bacteremia due to Staphylococcus R78.81; B95.8 Cellulitis, gluteal, right L03.317 SIRS (systemic inflammatory response syndrome) R65.10 Uncontrolled type 2 diabetes mellitus HTN (hypertension) I10 Hyponatremia E87.1
[2022-09-25] MEDS: insulin lispro 100 unit/1 mL SUBCUT ×2 (17:25→21:43)
[2022-09-25] MEDS: nicotine 2 mg Gum 4 MG BUCCAL (21:13)
[2022-09-25 21:34] LABS: Glucose Point of Care 209 mg/dL (70-110)
[2022-09-25] MEDS: insulin glargine 100 units/1 mL 25 UNIT SUBCUT (21:43)
[2022-09-25] MEDS: sodium chloride 0.9% 1,000 ML 75 ML IV (21:52)
[2022-09-26] VITALS (11 sets, daily range): BP systolic 95–119; BP diastolic 57–77; PULSE 67–88; RESP 17–19; TEMP 36.4–36.9; O2SAT 93–97
[2022-09-26] MEDS: oxyCODONE-APAP 5-325 mg Tablet 1 TAB PO ×3 (05:47→17:56)
[2022-09-26 06:08] LABS: Basophils # 0.1 10^3/uL (0.0-0.1); Basophils % 0.6 %; Eosinophils # 0.4 10^3/uL (0.0-0.8); Eosinophils % 3.7 %; Hematocrit 37.9 % (37.0-47.0); Lymphocytes # 3.7 10^3/uL (0.8-4.8); Lymphocytes % 34.2 %; Mean Corpuscular HGB Conc 31.7 g/dL (30.0-36.0); Mean Corpuscular Hemoglobin 26.5 pg (28.0-34.0); Mean Corpuscular Volume 83.7 fl (81-99); Mean Platelet Volume 9.7 fL (7.4-10.4); Monocytes # 0.6 10^3/uL (0.2-0.9); Monocytes % 5.6 %; Neutrophils # 5.88 10^3/uL (1.8-7.7); Neutrophils % 54.5 %; Nucleated Red Blood Cells % 0 %; Platelet Count 405 10^3/cmm (130-400); Red Blood Count 4.53 10^6/uL (4.1-5.3); Red Cell Distribution Width 13.5 % (12.1-15.1); White Blood Count 10.8 10^3/uL (4.0-10.0)
[2022-09-26 06:34] LABS: Alanine Aminotransferase 15 U/L (0-33); Albumin Level 3.4 g/dL (3.5-5.2); Alkaline Phosphatase 62 U/L (35-105); Aspartate Amino Transferase 16 U/L (0-32); Blood Urea Nitrogen 11 mg/dL (6-20); Calcium 8.9 mg/dL (8.5-10.5); Carbon Dioxide 23 mmol/L (22-29); Chloride 106 mmol/L (98-107); Creatinine Clr Calc Pharmacy 75.3542; Globulin 3.1 g/dL (1.3-4.6); Glomerular Filtration Rate 64.1 mL/min (90-130); Glucose 117 mg/dL (65-115); Osmolality Calculated 290 mOsm/kg (285-295); Sodium 140 mmol/L (136-145); Total Bilirubin 0.2 mg/dL (0.15-1.2); Total Protein 6.5 g/dL (6.6-8.7)
[2022-09-26 06:53] LABS: Anion Gap 15.3 (5-19); Potassium 4.3 mmol/L (3.5-5.1)
[2022-09-26 06:54] LABS: Glucose Point of Care 134 mg/dL (70-110)
[2022-09-26] MEDS: ondansetron 2 mg/ML SDV 2 mL 4 MG IVP ×2 (07:55→17:56)
[2022-09-26] MEDS: piperacillin-tazobactam 3.375 GM in sodium chloride 0.9% (plus) 50 ML IV ×2 (08:20→16:23)
[2022-09-26] MEDS: metoprolol tartrate 50 mg Tablet PO ×2 (08:20→17:56)
[2022-09-26] MEDS: amlodipine 5 mg Tablet PO (08:21)
[2022-09-26] MEDS: pantoprazole DR 40 mg Tablet PO (08:21)
[2022-09-26] MEDS: morphine 4 mg/mL SDV 1 mL 2 MG IVP (11:19)
[2022-09-26 12:03] LABS: Glucose Point of Care 184 mg/dL (70-110)
[2022-09-26] MEDS: insulin lispro 100 unit/1 mL SUBCUT ×2 (13:11→17:57)
[2022-09-26 16:19] LABS: Glucose Point of Care 166 mg/dL (70-110)
[2022-09-26] MEDS: nicotine 2 mg Gum 4 MG BUCCAL (16:28)
--- NOTE | 2022-09-26 17:10 | P.PN_ITS ---
Subjective Subjective: No acute events overnight. Patient underwent second OR dressing with Dr. Jensen yesterday. Tolerated well. Denies any nausea vomiting, headache. Sitting up in bed with family at bedside. States pain is well controlled. Blood pressure slightly on the lower side today though has remained hemodynamically stable and afebrile. Vitals/I&O/Wt Last Vital Signs Temp 97.9 F 09/26/22 15:13 Pulse 72 09/26/22 15:13 Resp 17 09/26/22 11:50 BP 95/58 09/26/22 15:13 Pulse Ox 97 09/26/22 15:13 O2 Del Method 09/25/22 17:47 O2 Flow Rate 2 09/25/22 20:00 09/26/22 09/26/22 09/26/22 06:59 14:59 22:59 Intake Total 530 / 2300 1170 / 1170 Balance 530 / 2300 1170 / 1170 Physical Exam Const: COMMON NORMALS: patient oriented x3 HENMT: COMMON NORMALS: normocephalic, atraumatic and hearing grossly normal bilaterally HEAD & SCALP: normocephalic and atraumatic Resp: COMMON NORMALS: normal respiratory effort, No retractions, No use of accessory muscles and clear to auscultation bilaterally EFFORT & INSPECTION: Yes symmetric chest movement AUSCULTATION: clear to auscultation bilaterally Cardio: COMMON NORMALS: regular rate, regular rhythm, S1 normal heart sound present, S2 normal heart sound present, No gallops present (Cardio), No murmurs present (Cardio), No rub (Cardio) and Peripheral pulses 2+ throughout RATE: regular rate RHYTHM: regular rhythm HEART SOUNDS: S1 normal heart sound present and S2 normal heart sound present PERIPHERAL PULSES: Peripheral pulses 2+ throughout GI: COMMON NORMALS: Normal to inspection, nondistended, normoactive bowel sounds present, Soft to palpation, non-tender, No hepatosplenomegaly present and no masses AUSCULTATION: Yes normoactive bowel sounds PALPATION: Yes Soft to palpation and Yes No hepatosplenomegaly present RECTAL EXAM: deferred Back/Pelvis: OTHER: Right gluteal region surgically packed without any soakage. Extremity: COMMON NORMALS: no clubbing, cyanosis or edema and no pedal edema Neuro: COMMON NORMALS: patient oriented x3 Data 09/26/22 05:18 09/26/22 05:18 Micro: Microbiology 09/23/22 11:16 Anaerobic Culture - Preliminary Buttock 09/24/22 16:57 Gram Stain - Final Buttock Tissue Culture - Preliminary 09/24/22 16:50 Gram Stain - Final Buttock Wound Culture - Preliminary Abscess Culture - Preliminary 09/23/22 11:16 Wound Culture - Preliminary Buttock 09/24/22 20:35 Blood Culture - Preliminary Blood NEGATIVE TO DATE 09/24/22 20:35 Blood Culture - Preliminary Blood NEGATIVE TO DATE 09/22/22 16:47 Blood Culture - Preliminary Blood Staphylococcus epidermidis 09/22/22 16:47 Wound Culture - Final Buttock A&P Assessment and plan (1) Abscess, gluteal, right: (2) Bacteremia due to Staphylococcus: (3) Cellulitis, gluteal, right: (4) SIRS (systemic inflammatory response syndrome): (5) Uncontrolled type 2 diabetes mellitus: (6) HTN (hypertension): (7) Hyponatremia: Plan 61 year old female with past medical history of hypertension diabetes came in today with chief complaint worsening of right buttock swelling, it started about 2 weeks back, since then it has progressively worsening and currently it is having purulent foul-smelling discharge.she also reports fever at home, was being managed as outpatient on p.o. Bactrim, has failed to respond. Assessment: Right buttock abscess/cellulitis: Appreciate CT results. No concerns for fluid collection/abscess for now but does have concerns for extend to the region of anus. Appreciate Dr. Jensen's recommendation and help. Continue with wound care as per the recommendations. Patient will need daily wound dressings as per Dr. Jensen as an outpatient. As per culture sensitivities stop Zosyn and start on vancomycin with trough levels between 15-20. Patient will need vancomycin for 2 weeks from 09/26. Staphylococcal bacteremia: Blood culture from admission 2 out of 4 bottles positive for staphylococcal epidermidis. Vancomycin as above. Repeat blood cultures sent on 09/24. So far negative. Most likely patient will need IV antibiotics for overall 14 days upon discharge. Repeat blood cultures come back positive we will plan for echocardiogram to rule out infective endocarditis. Uncontrolled type 2 diabetes mellitus: A1c 9.8. Patient supposed to be on glipizide and Ozempic at home. Not using Ozempic for last 2 to 4 weeks as not available. Patient does complain of nausea with Ozempic. Discussed in detail for tighter sugar controls and possible discharge on insulin. Patient verbalizes understanding and is agreeable. Blood sugars better controlled. Continue with Lantus to 25 units at bedtime. Continue with sliding scale at low-dose protocol before meals and at bedtime. History of hypertension: Goal blood pressure less than 140/90 mmHg. Hold off on amlodipine and lisinopril. Continue metoprolol. Hyponatremia: Resolved. Continue gentle IV addition normal saline 75 cc an hour Acute kidney injury: Baseline creatinine seems to be normal. Resolved. Medical reconciliation done for nephrotoxic drugs. CODE STATUS: Full code Carb consistent cardiac diet. DVT prophylaxis on Lovenox Protonix for PUD prophylaxis Tylenol as needed, oxycodone 5 mg every 6 hours as needed for pain management. Discharge planning: Given the extensive nature and location of the wound and the abscess patient is most likely going to need extensive wound care as an outpatient to prevent from worsening along with IV antibiotics for overall 14 days. Patient does not have good social support at home to take care of wound care. Discussed the need in detail with the patient and she is agreeable for SNF placement for short-term. Case management alerted. Attestations Medical Necessity Statement*: Requires further hospitalization for management of right gluteal abscess along with Staphylococcus bacteremia while safe discharge planning is sought as patient requires extensive wound care. Diagnoses Abscess, gluteal, right L02.31 Bacteremia due to Staphylococcus R78.81; B95.8 Cellulitis, gluteal, right L03.317 SIRS (systemic inflammatory response syndrome) R65.10 Uncontrolled type 2 diabetes mellitus HTN (hypertension) I10 Hyponatremia E87.1
--- NOTE | 2022-09-26 18:58 | PC.PHAR ---
Addendum entered by David [address] 09/26/22 19:29: Xiao called and stated that she couldn't start the Vancomycin till 2029. I retimed the dose and have adjusted the trough lab draw Original Note: Pharmacy to dose - 1250mg Q12h with an estimated trough at 15.70. Will draw trough before 4th dose on 09/28/22 @ 8447
[2022-09-26] MEDS: insulin glargine 100 units/1 mL 25 UNIT SUBCUT (21:12)
[2022-09-26] MEDS: vancomycin 1,250 MG/250 ML PIGGYBACK 250 MG IV (21:12)
[2022-09-26 21:54] LABS: Glucose Point of Care 143 mg/dL (70-110)
[2022-09-27] VITALS (8 sets, daily range): BP systolic 101–128; BP diastolic 56–74; PULSE 57–92; RESP 16–18; TEMP 36.4–36.9; O2SAT 92–96
[2022-09-27] MEDS: oxyCODONE-APAP 5-325 mg Tablet 1 TAB PO ×3 (01:42→22:31)
[2022-09-27 06:08] LABS: Basophils # 0.1 10^3/uL (0.0-0.1); Basophils % 0.7 %; Eosinophils # 0.4 10^3/uL (0.0-0.8); Eosinophils % 4.3 %; Hematocrit 36.9 % (37.0-47.0); Hemoglobin 11.5 g/dL (11.5-15.3); Lymphocytes # 3.1 10^3/uL (0.8-4.8); Lymphocytes % 30.5 %; Mean Corpuscular HGB Conc 31.2 g/dL (30.0-36.0); Mean Corpuscular Hemoglobin 26.6 pg (28.0-34.0); Mean Corpuscular Volume 85.2 fl (81-99); Mean Platelet Volume 9.2 fL (7.4-10.4); Monocytes # 0.6 10^3/uL (0.2-0.9); Monocytes % 5.7 %; Neutrophils # 5.88 10^3/uL (1.8-7.7); Neutrophils % 57.7 %; Nucleated Red Blood Cells % 0 %; Platelet Count 393 10^3/cmm (130-400); Red Blood Count 4.33 10^6/uL (4.1-5.3); Red Cell Distribution Width 13.5 % (12.1-15.1); White Blood Count 10.2 10^3/uL (4.0-10.0)
[2022-09-27 06:33] LABS: Glucose Point of Care 129 mg/dL (70-110)
[2022-09-27 06:36] LABS: Alanine Aminotransferase 18 U/L (0-33); Albumin Level 3.3 g/dL (3.5-5.2); Alkaline Phosphatase 54 U/L (35-105); Anion Gap 12.6 (5-19); Aspartate Amino Transferase 16 U/L (0-32); Blood Urea Nitrogen 10 mg/dL (6-20); Calcium 8.8 mg/dL (8.5-10.5); Carbon Dioxide 25 mmol/L (22-29); Chloride 106 mmol/L (98-107); Creatinine Clr Calc Pharmacy 75.3542; Globulin 2.8 g/dL (1.3-4.6); Glomerular Filtration Rate 64.1 mL/min (90-130); Glucose 133 mg/dL (65-115); Osmolality Calculated 289 mOsm/kg (285-295); Potassium 4.6 mmol/L (3.5-5.1); Sodium 139 mmol/L (136-145); Total Bilirubin 0.2 mg/dL (0.15-1.2); Total Protein 6.1 g/dL (6.6-8.7)
[2022-09-27] MEDS: nicotine 2 mg Gum 4 MG BUCCAL (08:11)
[2022-09-27] MEDS: vancomycin 1,250 MG/250 ML PIGGYBACK 250 MG IV ×2 (08:12→20:56)
[2022-09-27] MEDS: metoprolol tartrate 50 mg Tablet PO ×2 (08:12→18:21)
[2022-09-27] MEDS: pantoprazole DR 40 mg Tablet PO (08:12)
--- NOTE | 2022-09-27 09:41 | PC.SOCIAL ---
IMM update IMM updated with patient. Verbalized an understanding. Copy Pg 2 provided. Initialled, dated, timed, and placed in chart.
[2022-09-27] MEDS: bisacodyl 5 mg Tablet 10 MG PO (11:58)
[2022-09-27 12:13] LABS: Glucose Point of Care 136 mg/dL (70-110)
--- NOTE | 2022-09-27 12:40 | PC.NURSE ---
Midline placed to left basilic vein without difficulty. Mid-arm circumference measured 10 cm from left AC and noted at 35 cm. Trimmed cath length 10 cm with no external length noted. Pt tolerated well. Dressing due to be changed tomorrow, 09/28/22. Report given to bedside nurseOctavia.
[2022-09-27] MEDS: nicotine 14 mg Patch 1 PATCH TRANSDERMA (12:49)
--- NOTE | 2022-09-27 13:58 | P.PN_ITS ---
Subjective Subjective: No acute events overnight. Patient has remained hemodynamically stable and afebrile. She is anxious about discharge planning going forward. We discussed again that discharge planning depends on the number of time she needs the antibiotics in a day along with dressings. We discussed that going forward she will need IV antibiotics for 14 days and daily dressing patient needs to follow-up at wound care clinic. Patient verbalized understanding. Is requesting for nicotine patch. Otherwise blood sugars better controlled. Vitals/I&O/Wt Last Vital Signs Temp 98.4 F 09/27/22 11:29 Pulse 84 09/27/22 11:29 Resp 16 09/27/22 11:29 BP 104/68 09/27/22 11:29 Pulse Ox 95 09/27/22 11:29 O2 Del Method 09/27/22 11:29 O2 Flow Rate 2 09/25/22 20:00 09/26/22 09/27/22 09/27/22 22:59 06:59 14:59 Intake Total 910 / 2080 750 / 2830 730 / 730 Balance 910 / 2080 750 / 2830 730 / 730 Physical Exam Const: COMMON NORMALS: patient oriented x3 HENMT: COMMON NORMALS: normocephalic, atraumatic and hearing grossly normal bilaterally HEAD & SCALP: normocephalic and atraumatic Resp: COMMON NORMALS: normal respiratory effort, No retractions, No use of accessory muscles and clear to auscultation bilaterally EFFORT & INSPECTION: Yes symmetric chest movement AUSCULTATION: clear to auscultation bilaterally Cardio: COMMON NORMALS: regular rate, regular rhythm, S1 normal heart sound present, S2 normal heart sound present, No gallops present (Cardio), No murmurs present (Cardio), No rub (Cardio) and Peripheral pulses 2+ throughout RATE: regular rate RHYTHM: regular rhythm HEART SOUNDS: S1 normal heart sound present and S2 normal heart sound present PERIPHERAL PULSES: Peripheral pulses 2+ throughout GI: COMMON NORMALS: Normal to inspection, nondistended, normoactive bowel sounds present, Soft to palpation, non-tender, No hepatosplenomegaly present and no masses AUSCULTATION: Yes normoactive bowel sounds PALPATION: Yes Soft to palpation and Yes No hepatosplenomegaly present RECTAL EXAM: deferred Back/Pelvis: OTHER: Right gluteal region surgically packed without any soakage. Extremity: COMMON NORMALS: no clubbing, cyanosis or edema and no pedal edema Neuro: COMMON NORMALS: patient oriented x3 Data 09/27/22 05:54 09/27/22 05:54 Micro: Microbiology 09/23/22 11:16 Anaerobic Culture - Preliminary Buttock 09/24/22 16:57 Gram Stain - Final Buttock Tissue Culture - Preliminary 09/24/22 16:50 Gram Stain - Final Buttock Wound Culture - Preliminary Abscess Culture - Preliminary 09/23/22 11:16 Wound Culture - Preliminary Buttock A&P Assessment and plan (1) Abscess, gluteal, right: (2) Bacteremia due to Staphylococcus: (3) Cellulitis, gluteal, right: (4) SIRS (systemic inflammatory response syndrome): (5) Uncontrolled type 2 diabetes mellitus: (6) HTN (hypertension): (7) Hyponatremia: Plan 61 year old female with past medical history of hypertension diabetes came in today with chief complaint worsening of right buttock swelling, it started about 2 weeks back, since then it has progressively worsening and currently it is having purulent foul-smelling discharge.she also reports fever at home, was b eing managed as outpatient on p.o. Bactrim, has failed to respond. Assessment: Right buttock abscess/cellulitis: Appreciate CT results. No concerns for fluid collection/abscess for now but does have concerns for extend to the region of anus. Appreciate Dr. Jensen's recommendation and help. Continue with wound care as per the recommendations. Patient will need daily wound dressings as per Dr. Jensen as an outpatient. As per culture sensitivities stop Zosyn and start on vancomycin with trough le vels between 15-20. Patient will need vancomycin for 2 weeks from 09/26. Staphylococcal bacteremia: Blood culture from admission 2 out of 4 bottles positive for staphylococcal epidermidis. Vancomycin as above. Repeat blood cultures sent on 09/24. So far negative. Most likely patient will need IV antibiotics for overall 14 days upon discharge. Repeat blood cultures come back positive we will plan for echocardiogram to rule out infective endocarditis. Uncontrolled type 2 diabetes mellitus: A1c 9.8. Patient supposed to be on glipizide and Ozempic at home. Not using Ozempic for last 2 to 4 weeks as not available. Patient does complain of nausea with Ozempic. Discussed in detail for tighter sugar controls and possible discharge on insulin. Patient verbalizes understanding and is agreeable. Blood sugars better controlled. Continue with Lantus to 25 units at bedtime. Continue with sliding scale at low-dose protocol before meals and at bedtime. History of hypertension: Goal blood pressure less than 140/90 mmHg. Hold off on amlodipine and lisinopril. Continue metoprolol. Hyponatremia: Resolved. Continue gentle IV addition normal saline 75 cc an hour Acute kidney injury: Baseline creatinine seems to be normal. Resolved. Medical reconciliation done for nephrotoxic drugs. CODE STATUS: Full code Carb consistent cardiac diet. DVT prophylaxis on Lovenox Protonix for PUD prophylaxis Tylenol as needed, oxycodone 5 mg every 6 hours as needed for pain management. Discharge planning: Given the extensive nature and location of the wound and the abscess patient is most likely going to need extensive wound care as an outpatient to prevent from worsening along with IV antibiotics for overall 14 days. Patient does not have good social support at home to take care of wound care. Discussed the need in detail with the patient and she is agreeable for SNF placement for short-term. Case management alerted. Plan for the day: PICC/mid line placement. Continue with vancomycin for now every 12 hourly. Follow trough levels. Plan for continuing medication for overall 14 days from 09/26. Frequency of medication depending on trough which is to be done 09/28 in AM. Wound care dressing as per Dr. Jensen. Continue with Lantus 25 units and sliding scale. Most likely will discharge on Lantus 25 units with 3 units of insulin premeals. Case management to follow-up regarding discharge planning. Prior authorization being done at [facility] living. Attestations Medical Necessity Statement*: Requires further hospitalization for management of right gluteal abscess requiring IV antibiotics and extensive wound care with staphylococcal epidermidis bacteremia while safe discharge planning is sought. Diagnoses Abscess, gluteal, right L02.31 Bacteremia due to Staphylococcus R78.81; B95.8 Cellulitis, gluteal, right L03.317 SIRS (systemic inflammatory response syndrome) R65.10 Uncontrolled type 2 diabetes mellitus HTN (hypertension) I10 Hyponatremia E87.1
[2022-09-27] MEDS: metroNIDAZOLE 500 MG Tablet PO ×2 (15:18→20:57)
--- NOTE | 2022-09-27 17:24 | PC.NURSE ---
Patient 17:00 accucheck was 197
[2022-09-27 17:37] LABS: Glucose Point of Care 189 mg/dL (70-110)
[2022-09-27] MEDS: insulin lispro 100 unit/1 mL SUBCUT ×2 (18:21→22:31)
[2022-09-27] MEDS: magnesium hydroxide 30 mL UDC 45 ML PO (18:45)
[2022-09-27] MEDS: insulin glargine 100 units/1 mL 25 UNIT SUBCUT (22:30)
[2022-09-27 22:55] LABS: Glucose Point of Care 124 mg/dL (70-110)
[2022-09-27 23:43] LABS: Glucose Point of Care 175 mg/dL (70-110)
[2022-09-28] VITALS (7 sets, daily range): BP systolic 84–126; BP diastolic 55–75; PULSE 62–76; RESP 16–18; TEMP 36.3–36.7; O2SAT 93–98
[2022-09-28 00:52] LABS: Glucose Point of Care 98 mg/dL (70-110)
[2022-09-28 01:47] LABS: Glucose Point of Care 91 mg/dL (70-110)
[2022-09-28 04:36] LABS: Glucose Point of Care 156 mg/dL (70-110)
[2022-09-28 06:19] LABS: Glucose Point of Care 138 mg/dL (70-110)
[2022-09-28 07:57] LABS: Basophils # 0.1 10^3/uL (0.0-0.1); Basophils % 0.8 %; Eosinophils # 0.3 10^3/uL (0.0-0.8); Eosinophils % 3.8 %; Hematocrit 35.2 % (37.0-47.0); Hemoglobin 11.2 g/dL (11.5-15.3); Lymphocytes # 2.7 10^3/uL (0.8-4.8); Lymphocytes % 33.1 %; Mean Corpuscular HGB Conc 31.8 g/dL (30.0-36.0); Mean Corpuscular Hemoglobin 27.1 pg (28.0-34.0); Mean Corpuscular Volume 85.2 fl (81-99); Mean Platelet Volume 9.5 fL (7.4-10.4); Monocytes # 0.5 10^3/uL (0.2-0.9); Monocytes % 5.7 %; Neutrophils # 4.57 10^3/uL (1.8-7.7); Neutrophils % 55.4 %; Nucleated Red Blood Cells % 0 %; Platelet Count 348 10^3/cmm (130-400); Red Blood Count 4.13 10^6/uL (4.1-5.3); Red Cell Distribution Width 13.8 % (12.1-15.1); White Blood Count 8.3 10^3/uL (4.0-10.0)
[2022-09-28 08:21] LABS: Alanine Aminotransferase 16 U/L (0-33); Albumin Level 3.4 g/dL (3.5-5.2); Alkaline Phosphatase 61 U/L (35-105); Anion Gap 15.6 (5-19); Aspartate Amino Transferase 16 U/L (0-32); Blood Urea Nitrogen 16 mg/dL (6-20); Calcium 8.2 mg/dL (8.5-10.5); Carbon Dioxide 23 mmol/L (22-29); Chloride 102 mmol/L (98-107); Globulin 2.7 g/dL (1.3-4.6); Glomerular Filtration Rate 102.3 mL/min (90-130); Glucose 155 mg/dL (65-115); Osmolality Calculated 286 mOsm/kg (285-295); Potassium 4.6 mmol/L (3.5-5.1); Sodium 136 mmol/L (136-145); Total Bilirubin 0.2 mg/dL (0.15-1.2); Total Protein 6.1 g/dL (6.6-8.7)
[2022-09-28 08:22] LABS: Vancomycin Trough 14.8 ug/mL (10-15)
[2022-09-28] MEDS: metoprolol tartrate 50 mg Tablet PO ×2 (09:18→17:25)
[2022-09-28] MEDS: metroNIDAZOLE 500 MG Tablet PO ×3 (09:18→20:11)
[2022-09-28] MEDS: nicotine 14 mg Patch 1 PATCH TRANSDERMA (09:18)
[2022-09-28] MEDS: pantoprazole DR 40 mg Tablet PO (09:18)
[2022-09-28] MEDS: vancomycin 1,250 MG/250 ML PIGGYBACK 250 MG IV ×2 (10:28→20:12)
[2022-09-28 11:53] LABS: Glucose Point of Care 169 mg/dL (70-110)
[2022-09-28] MEDS: insulin lispro 100 unit/1 mL SUBCUT ×3 (12:14→21:09)
[2022-09-28] MEDS: oxyCODONE-APAP 5-325 mg Tablet 1 TAB PO (13:37)
[2022-09-28 17:10] LABS: Glucose Point of Care 213 mg/dL (70-110)
--- NOTE | 2022-09-28 17:24 | P.PN_ITS ---
Subjective Subjective: No acute vents overnight. Patient seen sitting up in bed with family at bedside. Denies any nausea vomiting, headache. A lot better mood today. Denies any headache. Vitals/I&O/Wt Last Vital Signs Temp 97.4 F L 09/28/22 16:00 Pulse 72 09/28/22 16:00 Resp 17 09/28/22 16:00 BP 108/75 09/28/22 16:00 Pulse Ox 95 09/28/22 16:00 O2 Del Method 09/27/22 19:26 O2 Flow Rate 2 09/28/22 08:00 09/28/22 09/28/22 09/28/22 06:59 14:59 22:59 Intake Total 600 / 2660 610 / 610 Balance 600 / 2660 610 / 610 Physical Exam Const: COMMON NORMALS: patient oriented x3 HENMT: COMMON NORMALS: normocephalic, atraumatic and hearing grossly normal bilaterally HEAD & SCALP: normocephalic and atraumatic Resp: COMMON NORMALS: normal respiratory effort, No retractions, No use of accessory muscles and clear to auscultation bilaterally EFFORT & INSPECTION: Yes symmetric chest movement AUSCULTATION: clear to auscultation bilaterally Cardio: COMMON NORMALS: regular rate, regular rhythm, S1 normal heart sound present, S2 normal heart sound present, No gallops present (Cardio), No murmurs present (Cardio), No rub (Cardio) and Peripheral pulses 2+ throughout RATE: regular rate RHYTHM: regular rhythm HEART SOUNDS: S1 normal heart sound present and S2 normal heart sound present PERIPHERAL PULSES: Peripheral pulses 2+ throughout GI: COMMON NORMALS: Normal to inspection, nondistended, normoactive bowel sounds present, Soft to palpation, non-tender, No hepatosplenomegaly present and no masses AUSCULTATION: Yes normoactive bowel sounds PALPATION: Yes Soft to palpation and Yes No hepatosplenomegaly present RECTAL EXAM: deferred Back/Pelvis: OTHER: Right gluteal region surgically packed without any soakage. Extremity: COMMON NORMALS: no clubbing, cyanosis or edema and no pedal edema Neuro: COMMON NORMALS: patient oriented x3 Data 09/28/22 07:40 09/28/22 07:40 Micro: Microbiology 09/23/22 11:16 Anaerobic Culture - Final Buttock Bacteroides thetaiotaomicron Eubacterium limosum 03/19/23 16:40 Blood Culture - Final Blood NO GROWTH AFTER 5 DAYS 09/22/22 16:47 Blood Culture - Final Blood Staphylococcus epidermidis 09/24/22 16:57 Gram Stain - Final Buttock Tissue Culture - Final 09/23/22 11:16 Wound Culture - Final Buttock 09/24/22 16:50 Gram Stain - Final Buttock Wound Culture - Final Abscess Culture - Preliminary A&P Assessment and plan (1) Abscess, gluteal, right: (2) Bacteremia due to Staphylococcus: (3) Cellulitis, gluteal, right: (4) SIRS (systemic inflammatory response syndrome): (5) Uncontrolled type 2 diabetes mellitus: (6) HTN (hypertension): (7) Hyponatremia: Plan 61 year old female with past medical history of hypertension diabetes came in today with chief complaint worsening of right buttock swelling, it started about 2 weeks back, since then it has progressively worsening and currently it is having purulent foul-smelling discharge.she also reports fever at home, was being managed as outpatient on p.o. Bactrim, has failed to respond. Assessment: Right buttock abscess/cellulitis: Appreciate CT results. No concerns for fluid collection/abscess for now but does have concerns for extend to the region of anus. Appreciate Dr. Jensen's recommendation and help. Continue with wound care as per the recommendations. Patient will need daily wound dressings as per Dr. Jensen as an outpatient. As per culture sensitivities stop Zosyn and start on vancomycin with trough levels between 15-20. Patient will need vancomycin for 2 weeks from 09/26. Staphylococcal bacteremia: Blood culture from admission 2 out of 4 bottles positive for staphylococcal epidermidis. Vancomycin as above. Repeat blood cultures sent on 09/24. So far negative. Most likely patient will need IV antibiotics for overall 14 days upon discharge. Repeat blood cultures come back positive we will plan for echocardiogram to rule out infective endocarditis. Uncontrolled type 2 diabetes mellitus: A1c 9.8. Patient supposed to be on glipizide and Ozempic at home. Not using Ozempic for last 2 to 4 weeks as not available. Patient does complain of nausea with Ozempic. Discussed in detail for tighter sugar controls and possible discharge on insulin. Patient verbalizes understanding and is agreeable. Blood sugars better controlled. Continue with Lantus to 25 units at bedtime. Continue with sliding scale at low-dose protocol before meals and at bedtime. History of hypertension: Goal blood pressure less than 140/90 mmHg. Hold off on amlodipine and lisinopril. Continue metoprolol. Hyponatremia: Resolved. Continue gentle IV addition normal saline 75 cc an hour Acute kidney injury: Baseline creatinine seems to be normal. Resolved. Medical reconciliation done for nephrotoxic drugs. CODE STATUS: Full code Carb consistent cardiac diet. DVT prophylaxis on Lovenox Protonix for PUD prophylaxis Tylenol as needed, oxycodone 5 mg every 6 hours as needed for pain management. Discharge planning: Given the extensive nature and location of the wound and the abscess patient is most likely going to need extensive wound care as an outpatient to prevent from worsening along with IV antibiotics for overall 14 days. Patient does not have good social support at home to take care of wound care. Discussed the need in detail with the patient and she is agreeable for SNF placement for short-term. Case management alerted. Plan for the day: Midline placed yesterday. Appreciate trough levels. At target. Continue with IV vancomycin every 12 hourly. Wound cultures growing anaerobes. Continue with Flagyl 5 mg 3 times daily. Will finish a 10-day course of Flagyl. Continue with Lantus 25 units and sliding scale. Continue with daily wound care. Most likely will discharge on Lantus 25 units with 3 units of insulin premeals. Awaiting prior authorization. Plan to discharge to SNF once authorization gathered. Attestations Medical Necessity Statement*: Requires further hospitalization for management of Staphylococcus bacteremia in setting of right gluteal abscess requiring ex tensive wound care and outpatient with uncontrolled diabetes mellitus while safe discharge planning is sought. Diagnoses Abscess, gluteal, right L02.31 Bacteremia due to Staphylococcus R78.81; B95.8 Cellulitis, gluteal, right L03.317 SIRS (systemic inflammatory response syndrome) R65.10 Uncontrolled type 2 diabetes mellitus HTN (hypertension) I10 Hyponatremia E87.1
[2022-09-28 20:17] LABS: Glucose Point of Care 217 mg/dL (70-110)
[2022-09-28] MEDS: insulin glargine 100 units/1 mL 25 UNIT SUBCUT (21:08)
[2022-09-29] VITALS (8 sets, daily range): BP systolic 81–119; BP diastolic 52–85; PULSE 67–96; RESP 16–18; TEMP 36.1–36.8; O2SAT 93–97
[2022-09-29 04:39] LABS: Basophils # 0.1 10^3/uL (0.0-0.1); Eosinophils # 0.3 10^3/uL (0.0-0.8); Hematocrit 40.1 % (37.0-47.0); Hemoglobin 12.5 g/dL (11.5-15.3); Lymphocytes % 30.7 %; Mean Corpuscular HGB Conc 31.2 g/dL (30.0-36.0); Mean Corpuscular Hemoglobin 26.9 pg (28.0-34.0); Mean Corpuscular Volume 86.4 fl (81-99); Mean Platelet Volume 9.6 fL (7.4-10.4); Monocytes # 0.7 10^3/uL (0.2-0.9); Monocytes % 6.7 %; Neutrophils # 5.56 10^3/uL (1.8-7.7); Neutrophils % 57.4 %; Nucleated Red Blood Cells % 0 %; Platelet Count 424 10^3/cmm (130-400); Red Blood Count 4.64 10^6/uL (4.1-5.3); White Blood Count 9.7 10^3/uL (4.0-10.0)
[2022-09-29 04:59] LABS: Alanine Aminotransferase 18 U/L (0-33); Albumin Level 3.6 g/dL (3.5-5.2); Alkaline Phosphatase 57 U/L (35-105); Anion Gap 14.5 (5-19); Aspartate Amino Transferase 18 U/L (0-32); Blood Urea Nitrogen 16 mg/dL (6-20); Carbon Dioxide 25 mmol/L (22-29); Chloride 104 mmol/L (98-107); Globulin 3.1 g/dL (1.3-4.6); Glomerular Filtration Rate 73.4 mL/min (90-130); Glucose 112 mg/dL (65-115); Osmolality Calculated 290 mOsm/kg (285-295); Potassium 4.5 mmol/L (3.5-5.1); Sodium 139 mmol/L (136-145); Total Bilirubin 0.2 mg/dL (0.15-1.2); Total Protein 6.7 g/dL (6.6-8.7)
[2022-09-29 06:31] LABS: Glucose Point of Care 158 mg/dL (70-110)
--- NOTE | 2022-09-29 08:50 | PC.NURSE ---
I spoke to Stiven in inpatient pharmacy to verify that vancomycin should still be given with a therapeutic vanc trough of 14.8. Stiven verbalized to go ahead and administer to patient.
[2022-09-29] MEDS: insulin lispro 100 unit/1 mL SUBCUT ×3 (08:54→21:58)
[2022-09-29] MEDS: metoprolol tartrate 25 mg Tablet PO ×2 (08:55→21:20)
[2022-09-29] MEDS: metroNIDAZOLE 500 MG Tablet PO ×3 (08:55→21:20)
[2022-09-29] MEDS: pantoprazole DR 40 mg Tablet PO (08:55)
[2022-09-29] MEDS: vancomycin 1,250 MG/250 ML PIGGYBACK 250 MG IV ×2 (08:55→20:42)
[2022-09-29] MEDS: nicotine 14 mg Patch 1 PATCH TRANSDERMA ×2 (08:55→18:17)
[2022-09-29] MEDS: oxyCODONE-APAP 5-325 mg Tablet 1 TAB PO (13:35)
[2022-09-29 13:55] LABS: Glucose Point of Care 287 mg/dL (70-110)
--- NOTE | 2022-09-29 16:10 | PM.PN ---
Subjective Subjective: No acute events overnight. Patient denies any nausea vomiting, headache. Seen today post bath. Patient working well. Patient getting antibiotics through PICC line. Has remained hemodynamically stable and afebrile. Overnight blood pressures were slightly soft so dose of metoprolol decreased. Patient herself does not have any new complaints. Vitals/I&O/Wt Last Vital Signs Temp 98.0 F 09/29/22 15:53 Pulse 96 09/29/22 15:53 Resp 16 09/29/22 15:53 BP 118/80 09/29/22 15:53 Pulse Ox 94 09/29/22 15:53 O2 Del Method 09/29/22 15:53 O2 Flow Rate 2 09/28/22 08:00 09/29/22 09/29/22 09/29/22 06:59 14:59 22:59 Intake Total 970 / 970 Balance 970 / 970 Physical Exam Const: COMMON NORMALS: patient oriented x3 HENMT: COMMON NORMALS: normocephalic, atraumatic and hearing grossly normal bilaterally HEAD & SCALP: normocephalic and atraumatic Resp: COMMON NORMALS: normal respiratory effort, No retractions, No use of accessory muscles and clear to auscultation bilaterally EFFORT & INSPECTION: Yes symmetric chest movement AUSCULTATION: clear to auscultation bilaterally Cardio: COMMON NORMALS: regular rate, regular rhythm, S1 normal heart sound present, S2 normal heart sound present, No gallops present (Cardio), No murmurs present (Cardio), No rub (Cardio) and Peripheral pulses 2+ throughout RATE: regular rate RHYTHM: regular rhythm HEART SOUNDS: S1 normal heart sound present and S2 normal heart sound present PERIPHERAL PULSES: Peripheral pulses 2+ throughout GI: COMMON NORMALS: Normal to inspection, nondistended, normoactive bowel sounds present, Soft to palpation, non-tender, No hepatosplenomegaly present and no masses AUSCULTATION: Yes normoactive bowel sounds PALPATION: Yes Soft to palpation and Yes No hepatosplenomegaly present RECTAL EXAM: deferred Back/Pelvis: OTHER: Right gluteal region surgically packed without any soakage. Extremity: COMMON NORMALS: no clubbing, cyanosis or edema and no pedal edema Neuro: COMMON NORMALS: patient oriented x3 Data 09/29/22 04:16 09/29/22 04:16 Micro: Microbiology 09/23/22 11:16 Anaerobic Culture - Final Buttock Bacteroides thetaiotaomicron Eubacterium limosum A&P Assessment and plan (1) Abscess, gluteal, right: (2) Bacteremia due to Staphylococcus: (3) Cellulitis, gluteal, right: (4) SIRS (systemic inflammatory response syndrome): (5) Uncontrolled type 2 diabetes mellitus: (6) HTN (hypertension): (7) Hyponatremia: Plan 61 year old female with past medical history of hypertension diabetes came in today with chief complaint worsening of right buttock swelling, it started about 2 weeks back, since then it has progressively worsening and currently it is having purulent foul-smelling discharge.she also reports fever at home, was being managed as outpatient on p.o. Bactrim, has failed to respond. Assessment: Right buttock abscess/cellulitis: Appreciate CT results. No concerns for fluid collection/abscess for now but does have concerns for extend to the region of anus. Appreciate Dr. Jensen's recommendation and help. Continue with wound care as per the recommendations. Patient will need daily wound dressings as per Dr. Jensen as an outpatient. As per culture sensitivities stop Zosyn and start on vancomycin with trough levels between 15-20. Patient will need vancomycin for 2 weeks from 09/26. Staphylococcal bacteremia: Blood culture from admission 2 out of 4 bottles positive for staphylococcal epidermidis. Vancomycin as above. Repeat blood cultures sent on 09/24. So far negative. Most likely patient will need IV antibiotics for overall 14 days upon discharge. Repeat blood cultures come back positive we will plan for echocardiogram to rule out infective endocarditis. Uncontrolled type 2 diabetes mellitus: A1c 9.8. Patient supposed to be on glipizide and Ozempic at home. Not using Ozempic for last 2 to 4 weeks as not available. Patient does complain of nausea with Ozempic. Discussed in detail for tighter sugar controls and possible discharge on insulin. Patient verbalizes understanding and is agreeable. Blood sugars better controlled. Continue with Lantus to 25 units at bedtime. Continue with sliding scale at low-dose protocol before meals and at bedtime. History of hypertension: Goal blood pressure less than 140/90 mmHg. Hold off on amlodipine and lisinopril. Continue metoprolol. Hyponatremia: Resolved. Continue gentle IV addition normal saline 75 cc an hour Acute kidney injury: Baseline creatinine seems to be normal. Resolved. Medical reconciliation done for nephrotoxic drugs. CODE STATUS: Full code Carb consistent cardiac diet. DVT prophylaxis on Lovenox Protonix for PUD prophylaxis Tylenol as needed, oxycodone 5 mg every 6 hours as needed for pain management. Discharge planning: Given the extensive nature and location of the wound and the abscess patient is most likely going to need extensive wound care as an outpatient to prevent from worsening along with IV antibiotics for overall 14 days. Patient does not have good social support at home to take care of wound care. Discussed the need in detail with the patient and she is agreeable for SNF placement for short-term. Case management alerted. Plan for the day: Appreciate wound culture results. Blood culture from 09/24 has been negative. Continuing with IV vancomycin for treatment of Staph epidermidis bacteremia and abscess. Renal functions have remained stable. Lab holiday tomorrow. Blood sugars appreciated. Continue with current insulin sliding scale and insulin management. Received 25 units of Lantus yesterday along with 10 units of Humalog. Continue daily wound care dressings. Awaiting authorization for placement for extensive wound care and IV antibiotics. Attestations Medical Necessity Statement*: Requires further hospitalization for management of right gluteal abscess, staph bacteremia while safe discharge planning is sought as patient requires 14 days of IV antibiotics and extensive wound care Diagnoses Abscess, gluteal, right L02.31 Bacteremia due to Staphylococcus R78.81; B95.8 Cellulitis, gluteal, right L03.317 SIRS (systemic inflammatory response syndrome) R65.10 Uncontrolled type 2 diabetes mellitus HTN (hypertension) I10 Hyponatremia E87.1
[2022-09-29 17:11] LABS: Glucose Point of Care 114 mg/dL (70-110)
[2022-09-29] MEDS: insulin glargine 100 units/1 mL 25 UNIT SUBCUT (20:42)
[2022-09-29 21:49] LABS: Glucose Point of Care 237 mg/dL (70-110)
[2022-09-30] VITALS (8 sets, daily range): BP systolic 110–129; BP diastolic 72–88; PULSE 77–111; RESP 14–20; TEMP 36.3–36.8; O2SAT 93–98
[2022-09-30 06:49] LABS: Glucose Point of Care 140 mg/dL (70-110)
[2022-09-30] MEDS: metroNIDAZOLE 500 MG Tablet PO ×3 (08:01→20:57)
[2022-09-30] MEDS: metoprolol tartrate 25 mg Tablet PO ×2 (08:01→20:57)
[2022-09-30] MEDS: nicotine 14 mg Patch 1 PATCH TRANSDERMA (08:01)
[2022-09-30] MEDS: pantoprazole DR 40 mg Tablet PO (08:01)
[2022-09-30] MEDS: vancomycin 1,250 MG/250 ML PIGGYBACK 250 MG IV (08:02)
[2022-09-30 11:15] LABS: Glucose Point of Care 191 mg/dL (70-110)
[2022-09-30] MEDS: oxyCODONE-APAP 5-325 mg Tablet 1 TAB PO ×2 (11:26→20:57)
[2022-09-30] MEDS: insulin lispro 100 unit/1 mL SUBCUT ×2 (11:27→20:57)
--- NOTE | 2022-09-30 15:22 | P.PN_ITS ---
Subjective Subjective: No acute events overnight. Patient has remained hemodynamically stable and afebrile. Denies any nausea, vomiting, headache. States she is having itching under her arms and on leg. States the itching has been ongoing for last 3 or 4 days but has not been increasing. She is getting restless off when she does not get out of the hospital. Vitals/I&O/Wt Last Vital Signs Temp 98.3 F 09/30/22 12:02 Pulse 88 09/30/22 12:02 Resp 17 09/30/22 12:02 BP 126/81 09/30/22 12:02 Pulse Ox 97 09/30/22 12:02 O2 Del Method 09/30/22 12:02 O2 Flow Rate 2 09/28/22 08:00 09/30/22 09/30/22 09/30/22 06:59 14:59 22:59 Intake Total 560 / 560 Output Total 0 / 0 Balance 0 / 1460 560 / 560 Physical Exam Const: COMMON NORMALS: patient oriented x3 HENMT: COMMON NORMALS: normocephalic, atraumatic and hearing grossly normal bilaterally HEAD & SCALP: normocephalic and atraumatic Resp: COMMON NORMALS: normal respiratory effort, No retractions, No use of accessory muscles and clear to auscultation bilaterally EFFORT & INSPECTION: Yes symmetric chest movement AUSCULTATION: clear to auscultation bilaterally Cardio: COMMON NORMALS: regular rate, regular rhythm, S1 normal heart sound present, S2 normal heart sound present, No gallops present (Cardio), No murmurs present (Cardio), No rub (Cardio) and Peripheral pulses 2+ throughout RATE: regular rate RHYTHM: regular rhythm HEART SOUNDS: S1 normal heart sound present and S2 normal heart sound present PERIPHERAL PULSES: Peripheral pulses 2+ throughout GI: COMMON NORMALS: Normal to inspection, nondistended, normoactive bowel sounds present, Soft to palpation, non-tender, No hepatosplenomegaly present and no masses AUSCULTATION: Yes normoactive bowel sounds PALPATION: Yes Soft to palpation and Yes No hepatosplenomegaly present RECTAL EXAM: deferred Back/Pelvis: OTHER: Right gluteal region surgically packed without any soakage. Extremity: COMMON NORMALS: no clubbing, cyanosis or edema and no pedal edema Neuro: COMMON NORMALS: patient oriented x3 Data 09/29/22 04:16 09/29/22 04:16 Micro: Microbiology 09/24/22 20:35 Blood Culture - Final Blood NO GROWTH AFTER 5 DAYS 09/24/22 20:35 Blood Culture - Final Blood NO GROWTH AFTER 5 DAYS 09/23/22 11:16 Anaerobic Culture - Final Buttock Bacteroides thetaiotaomicron Eubacterium limosum A&P Assessment and plan (1) Abscess, gluteal, right: (2) Bacteremia due to Staphylococcus: (3) Cellulitis, gluteal, right: (4) SIRS (systemic inflammatory response syndrome): (5) Uncontrolled type 2 diabetes mellitus: (6) HTN (hypertension): (7) Hyponatremia: Plan 61 year old female with past medical history of hypertension diabetes came in today with chief complaint worsening of right buttock swelling, it started about 2 weeks back, since then it has progressively worsening and currently it is having purulent foul-smelling discharge.she also reports fever at home, was being managed as outpatient on p.o. Bactrim, has failed to respond. Assessment: Right buttock abscess/cellulitis: Appreciate CT results. No concerns for fluid collection/abscess for now but does have concerns for extend to the region of anus. Appreciate Dr. Jensen's recommendation and help. Continue with wound care as per the recommendations. Patient will need daily wound dressings as per Dr. Jensen as an outpatient. As per culture sensitivities stop Zosyn and start on vancomycin with trough levels between 15-20. Patient will need vancomycin for 2 weeks from 09/26. Staphylococcal bacteremia: Blood culture from admission 2 out of 4 bottles positive for staphylococcal epidermidis. Vancomycin as above. Repeat blood cultures sent on 09/24. So far negative. Most likely patient will need IV antibiotics for overall 14 days upon discharge. Repeat blood cultures come back positive we will plan for echocardiogram to rule out infective endocarditis. Uncontrolled type 2 diabetes mellitus: A1c 9.8. Patient supposed to be on glip izide and Ozempic at home. Not using Ozempic for last 2 to 4 weeks as not available. Patient does complain of nausea with Ozempic. Discussed in detail for tighter sugar controls and possible discharge on insulin. Patient verbalizes understanding and is agreeable. Blood sugars better controlled. Continue with Lantus to 25 units at bedtime. Continue with sliding scale at low-dose protocol before meals and at bedtime. History of hypertension: Goal blood pressure less than 140/90 mmHg. Hold off on amlodipine and lisinopril. Continue metoprolol. Hyponatremia: Resolved. Continue gentle IV addition normal saline 75 cc an hour Acute kidney injury: Baseline creatinine seems to be normal. Resolved. Medical reconciliation done for nephrotoxic drugs. CODE STATUS: Full code Carb consistent cardiac diet. DVT prophylaxis on Lovenox Protonix for PUD prophylaxis Tylenol as needed, oxycodone 5 mg every 6 hours as needed for pain management. Discharge planning: Given the extensive nature and location of the wound and the abscess patient is most likely going to need extensive wound care as an outpatient to prevent from worsening along with IV antibiotics for overall 14 days. Patient does not have good social support at home to take care of wound care. Discussed the need in detail with the patient and she is agreeable for SNF placement for short-term. Case management alerted. Plan for the day: Continue with IV vancomycin. Trough levels 21. Dose changed to 1.25 g every 18 hourly. Patient will need weekly CBC and CMP and trough levels every third day to maintain and change dose as per trough levels between 15-20. Last dose of antibiotic on 10/10 Daily wound dressings. PICC line dressing. Will discharge on Lantus 30 units along with insulin sliding scale at low-dose protocol. Discussed all of the above in detail with patient. She verbalized understanding. Also discussed that target fasting blood sugar is less than 120 and postprandial is 140. Patient verbalized understanding. Awaiting prior authorization. Patient has been accepted to SNF. Benadryl oral 12.5 every 8 hourly as needed for itching. Attestations Medical Necessity Statement*: Requires further hospitalization for management of right gluteal abscess requiring IV antibiotics for staph bacteremia and daily wound dressings while safe discharge planning is sought. Diagnoses Abscess, gluteal, right L02.31 Bacteremia due to Staphylococcus R78.81; B95.8 Cellulitis, gluteal, right L03.317 SIRS (systemic inflammatory response syndrome) R65.10 Uncontrolled type 2 diabetes mellitus HTN (hypertension) I10 Hyponatremia E87.1
[2022-09-30 17:18] LABS: Glucose Point of Care 142 mg/dL (70-110)
[2022-09-30] MEDS: diphenhydrAMINE 25 mg Capsule PO ×2 (17:34→23:36)
[2022-09-30 20:31] LABS: Glucose Point of Care 286 mg/dL (70-110)
[2022-09-30] MEDS: insulin glargine 100 units/1 mL 25 UNIT SUBCUT (20:56)
[2022-10-01 04:00] VITALS: BP 100/59; PULSE 76; RESP 16; TEMP 36.6; O2SAT 95
[2022-10-01] MEDS: vancomycin 1,250 MG/250 ML PIGGYBACK 250 MG IV (05:50)
[2022-10-01 06:31] LABS: Glucose Point of Care 126 mg/dL (70-110)
[2022-10-01 08:00] VITALS: BP 108/72; PULSE 76; RESP 15; TEMP 36.6; O2SAT 95
[2022-10-01] MEDS: pantoprazole DR 40 mg Tablet PO (08:11)
[2022-10-01] MEDS: nicotine 14 mg Patch 1 PATCH TRANSDERMA (08:11)
[2022-10-01] MEDS: metoprolol tartrate 25 mg Tablet PO (08:11)
[2022-10-01] MEDS: metroNIDAZOLE 500 MG Tablet PO (08:11)
--- NOTE | 2022-10-01 10:15 | P.DS_ITS ---
Discharge Providers Date of Admission: 09/22/22 17:54 Date of Discharge: October 01, 2022 Attending Provider at Admission: Edi Barrera MD Attending Provider at Discharge: Papi Matta MD Primary Care Provider: ALEJANDRO Moore Diagnoses at Discharge Discharge Diagnosis (1) Abscess, gluteal, right: Status: Acute (2) Bacteremia due to Staphylococcus: Status: Acute (3) Cellulitis, gluteal, right: Status: Acute (4) SIRS (systemic inflammatory response syndrome): Status: Acute (5) Uncontrolled type 2 diabetes mellitus: Status: Acute (6) HTN (hypertension): Status: Chronic (7) Hyponatremia: Status: Acute Reason for Visit Reason for Visit: Abscess on right buttock Brief History: History as per HPI: Lisa Duke is a 61 year old female with past medical history of hypertension diabetes came in today with chief complaint worsening of right buttock swelling, it started about 2 weeks back, since then it has progressively worsening and currently it is having purulent foul-smelling discharge.she also reports fever at home, was being managed as outpatient on p.o. Bactrim, has failed to respond. CT abdomen and pelvis has shown:?27 mm collection of subcutaneous air and edema in the right gluteal crease suggestive of an ulcer and/or infectious process, negative for fluid collection seen.?A portion of this appears to extend to the region of the anus.? Pertinent labs: WBC 11.7, H&H: 11 and 36,PLT : 367 , serum sodium 133 serum potassium 4.6, BUN 22, serum creatinine 1.1, random blood sugar 200, lactic acid 1.5, Patient received 1 dose of vancomycin and Zosyn in the ER. Hospital Course Hospital Course Patient was under the hospital further evaluation and management of right gluteal abscess/ulcer. She was started on broad-spectrum antibiotics. Blood cultures from admission came back positive for staph epidermidis. Because of the extent of the wound, surgery was consulted and she underwent incision and drainage of the right gluteal abscess along with extensive dressing on 09/24. During hospitalization she was found to have uncontrolled type 2 diabetes mellitus with A1c of more than 9 she was transitioned over to insulin. Because of the extent of the wound requiring daily extensive wound care, IV antibiotics for bacteremia and gluteal abscess which she will need for 8 more days going forward discharge plan were discussed in detail with patient and patient's family at bedside. Patient wanted to go to the half-way for better care. She will be on IV vancomycin 1.25 g every 18 hours with a target trough of between 15-20, Lantus 35 units nightly and insulin sliding scale as per low-dose protocol which has been provided to her. She is to have weekly CBC and CMP while on antibiotics and trough levels every 4 days which will be followed up by the primary care provider. PICC line to be removed at the end of course of antibiotics. Physical Exam Const: COMMON NORMALS: patient oriented x3 HENMT: COMMON NORMALS: normocephalic, atraumatic and hearing grossly normal bilaterally HEAD & SCALP: normocephalic and atraumatic Resp: COMMON NORMALS: normal respiratory effort, No retractions, No use of accessory muscles and clear to auscultation bilaterally EFFORT & INSPECTION: Yes symmetric chest movement AUSCULTATION: clear to auscultation bilaterally Cardio: COMMON NORMALS: regular rate, regular rhythm, S1 normal heart sound present, S2 normal heart sound present, No gallops present (Cardio), No murmurs present (Cardio), No rub (Cardio) and Peripheral pulses 2+ throughout RATE: regular rate RHYTHM: regular rhythm HEART SOUNDS: S1 normal heart sound present and S2 normal heart sound present PERIPHERAL PULSES: Peripheral pulses 2+ throughout GI: COMMON NORMALS: Normal to inspection, nondistended, normoactive bowel sounds present, Soft to palpation, non-tender, No hepatosplenomegaly present and no masses AUSCULTATION: Yes normoactive bowel sounds PALPATION: Yes Soft to palpation and Yes No hepatosplenomegaly present RECTAL EXAM: deferred Back/Pelvis: OTHER: Right gluteal region surgically packed without any soakage. Extremity: COMMON NORMALS: no clubbing, cyanosis or edema and no pedal edema Neuro: COMMON NORMALS: patient oriented x3 Discharge Data Studies Completed and Pending Completed Studies During Hospitalization Category Date Time Status CT abdomen pelvis w con* [id number] Stat Cat Scan 09/22/22 16:05 Completed Pending at discharge Category Date Time Status Abscess Culture and Gram Stain Routine Lab 09/24/22 16:50 Results Wound Culture Routine Lab 09/24/22 16:50 Results Radiology Impressions Abdomen/Pelvis CT 09/22/22 16:05 IMPRESSION: 1. 27 mm collection of subcutaneous air and edema in the right gluteal crease suggestive of an ulcer and/or infectious process, negative for fluid collection seen. A portion of this appears to extend to the region of the anus. 2. Hepatic steatosis. 3. Left adrenal hypertrophy. 4. Left kidney cyst, negative for follow up advised. COMMENTS: Consistent with the [employer] [place] [employer]'s Incidental Findings Committee white paper (J Am Igor Radiol 2018): Any incidental renal lesion less than 1 cm or classified as too small to characterize, or any incidental cystic renal lesion characterized as simple-appearing, is likely benign. No follow-up imaging is recommended for these lesions per consensus recommendations based on imaging criteria. Microbiology 09/24/22 20:35 Blood Blood Culture - Final NO GROWTH AFTER 5 DAYS 09/24/22 20:35 Blood Blood Culture - Final NO GROWTH AFTER 5 DAYS 09/23/22 11:16 Buttock Anaerobic Culture - Final Bacteroides thetaiotaomicron Eubacterium limosum 09/22/22 16:40 Blood Blood Culture - Final NO GROWTH AFTER 5 DAYS 09/22/22 16:47 Blood Blood Culture - Final Staphylococcus epidermidis 09/24/22 16:57 Buttock Gram Stain - Final 09/24/22 16:57 Buttock Tissue Culture - Final 09/23/22 11:16 Buttock Wound Culture - Final 09/24/22 16:50 Buttock Gram Stain - Final 09/24/22 16:50 Buttock Wound Culture - Final 09/24/22 16:50 Buttock Abscess Culture - Preliminary 09/22/22 16:47 Buttock Wound Culture - Final 09/23/22 11:00 Nose MRSA Culture - Final Laboratory Results WBC 9.7 10^3/uL (4.0-10.0) 09/29/22 04:16 RBC 4.64 10^6/uL (4.1-5.3) 09/29/22 04:16 Hgb 12.5 g/dL (11.5-15.3) 09/29/22 04:16 Hct 40.1 % (37.0-47.0) 09/29/22 04:16 MCV 86.4 fl (81-99) 09/29/22 04:16 MCH 26.9 pg (28.0-34.0) L 09/29/22 04:16 MCHC 31.2 g/dL (30.0-36.0) 09/29/22 04:16 RDW 14.0 % (12.1-15.1) 09/29/22 04:16 Plt Count 424 10^3/cmm (130-400) H 09/29/22 04:16 MPV 9.6 fL (7.4-10.4) 09/29/22 04:16 Neut % (Auto) 57.4 % 09/29/22 04:16 Lymph % (Auto) 30.7 % 09/29/22 04:16 Spencer % (Auto) 6.7 % 09/29/22 04:16 Eos % (Auto) 3.0 % 09/29/22 04:16 Baso % (Auto) 1.0 % 09/29/22 04:16 Neut # (Auto) 5.56 10^3/uL (1.8-7.7) 09/29/22 04:16 Lymph # (Auto) 3.0 10^3/uL (0.8-4.8) 09/29/22 04:16 Spencer # (Auto) 0.7 10^3/uL (0.2-0.9) 09/29/22 04:16 Eos # (Auto) 0.3 10^3/uL (0.0-0.8) 09/29/22 04:16 Baso # (Auto) 0.1 10^3/uL (0.0-0.1) 09/29/22 04:16 Nucleated RBC % (auto) 0 % 09/29/22 04:16 Total Counted 100 (0-100) 09/24/22 05:28 Atypical Lymphs % 5.0 % (0-5) 09/24/22 05:28 Absolute Neutrophils 5.4 10^3/cmm (1.4-6.5) 09/24/22 05:28 Segmented Neutrophils 53 % 09/24/22 05:28 Abs Segm Neuts (Man) 5.4 10/cmm (1.6-7.1) 09/24/22 05:28 Band Neutrophils 0.0 % 09/24/22 05:28 Abs Band Neuts (Man) 0.0 10^3/cmm (0.0-1.2) 09/24/22 05:28 Absolute Lymphocytes 4.0 10^3/cmm (1.2-3.4) H 09/24/22 05:28 Lymphocytes (Manual) 35 % 09/24/22 05:28 Monocytes (Manual) 4.0 % 09/24/22 05:28 Absolute Monocytes 0.4 10^3/cmm (0.1-0.6) 09/24/22 05:28 Eosinophils (Manual) 3 % 09/24/22 05:28 Absolute Eosinophils 0.3 10^3/cmm (0.0-0.7) 09/24/22 05:28 Basophils (Manual) 0.0 % 09/24/22 05:28 Absolute Basophils 0.0 10^3/cmm (0.0-0.2) 09/24/22 05:28 Nucleated RBCs # 0.0 /100WBC 09/29/22 04:16 Platelet Estimate Normal (Normal) 09/24/22 05:28 Microcytosis Trace 09/24/22 05:28 RBC Morph Comment 1 09/24/22 05:28 ESR 19 mm/hr (0-15) H 09/23/22 04:54 Sodium 139 mmol/L (136-145) 09/29/22 04:16 Potassium 4.5 mmol/L (3.5-5.1) 09/29/22 04:16 Chloride 104 mmol/L (98-107) 09/29/22 04:16 Carbon Dioxide 25 mmol/L (22-29) 09/29/22 04:16 Anion Gap 14.5 (5-19) 09/29/22 04:16 BUN 16 mg/dL (6-20) 09/29/22 04:16 Creatinine 0.8 mg/dL (0.5-0.9) 09/29/22 04:16 GFR Calculation 73.4 mL/min (90-130) L 09/29/22 04:16 Glucose 112 mg/dL (65-115) 09/29/22 04:16 POC Glucose 126 mg/dL (70-110) H 10/01/22 06:22 Estimat Average Glucose 235 09/23/22 04:54 Hemoglobin A1c 9.8 % (4.0-6.0) H 09/23/22 04:54 Calculated Osmolality 290 mOsm/kg (285-295) 09/29/22 04:16 Lactic Acid 1.5 mmol/L (0.5-2.2) 09/22/22 16:35 Calcium 9.0 mg/dL (8.5-10.5) 09/29/22 04:16 Iron 39 ug/dL (37-145) 09/23/22 04:54 TIBC 229 mcg/dl 09/23/22 04:54 % Saturation 17.0 % (20-50) L 09/23/22 04:54 Unsat Iron Binding 190 ug/dL (112-347) 09/23/22 04:54 Total Bilirubin 0.2 mg/dL (0.15-1.2) 09/29/22 04:16 AST 18 U/L (0-32) 09/29/22 04:16 ALT 18 U/L (0-33) 09/29/22 04:16 Alkaline Phosphatase 57 U/L (35-105) 09/29/22 04:16 C-Reactive Protein 63.8 mg/L (0.0-4.9) H 09/23/22 04:54 Total Protein 6.7 g/dL (6.6-8.7) 09/29/22 04:16 Albumin 3.6 g/dL (3.5-5.2) 09/29/22 04:16 Globulin 3.1 g/dL (1.3-4.6) 09/29/22 04:16 Triglycerides 168 mg/dL (0-150) H 09/24/22 05:28 Cholesterol 106 mg/dL (0-200) 09/24/22 05:28 LDL Cholesterol, Calc 48 mg/dL (50-129) L 09/24/22 05:28 Total VLDL Cholesterol 34 mg/dL (0-30) H 09/24/22 05:28 HDL Cholesterol 24 mg/dL (60-100) L 09/24/22 05:28 Cholesterol/HDL Ratio 4.42 mg/dL (0.0-4.40) H 09/24/22 05:28 Vitamin B12 397 pg/mL (232-1245) 09/23/22 04:54 Folate > 20.0 ng/mL (4.8-37.3) 09/23/22 04:54 Procalcitonin 2.35 ng/mL (0-0.5) H 09/23/22 04:54 TSH 2.16 uIU/mL (0.27-4.20) 09/23/22 04:54 Vancomycin Trough 21.0 ug/mL (10-15) H 09/30/22 07:33 Serum Ketones Negative (Negative) 09/22/22 16:35 Vitals Last Vital Signs Temp 98 F 10/01/22 08:00 Pulse 76 10/01/22 08:00 Resp 15 10/01/22 08:00 BP 108/72 10/01/22 08:00 Pulse Ox 95 10/01/22 08:00 O2 Del Method 09/30/22 16:06 O2 Flow Rate 2 09/28/22 08:00 Discharge Plan Discharge Patient Disposition: Xfer SNF Condition: Stable Prescriptions: New metronidazole 500 mg Tablet 500 mg PO TID 7 Days Qty: 21 0RF metoprolol tartrate 25 mg Tablet 25 mg PO BID@0900,2100 Qty: 60 0RF Lantus Solostar U-100 Insulin 100 unit/mL (3 mL) insulin pen 30 unit SUBCUT QPM Qty: 15 0RF insulin lispro 100 unit/mL insulin pen See Protocol SUBCUT TID Qty: 15 0RF Protocol: Insulin Corrective High-Dose Regimen Condition: Fingerstick Blood Glucose Dose/Route: Insulin Units Condition: 141-180 mg/dl Dose/Route: 2 units/SQ Condition: 181-220 mg/dl Dose/Route: 4 units/SQ Condition: 221-260 mg/dl Dose/Route: 6 units/SQ Condition: 261-300 mg/dl Dose/Route: 10 units/SQ Condition: 301-350 mg/dl Dose/Route: 12 units/SQ Condition: 351-400 mg/dl Dose/Route: 14 units/SQ Condition: greater than 400 mg/dl Dose/Route: 18 units/SQ vancomycin 1.25 gram recon soln 1.25 g IV Q18H 14 Days Qty: 10 0RF Continued omeprazole 20 mg capsule,delayed release(DR/EC) 20 mg PO BID baclofen 10 mg tablet 10 mg PO DAILY PRN (Reason: Pain) Rx Instructions: needs to setup with a new provider All Day Allergy (cetirizine) 10 mg capsule 10 mg PO DAILY simvastatin 20 mg tablet 20 mg PO DAILY Discontinued metoprolol tartrate 50 mg tablet 75 mg PO BID lisinopril 2.5 mg tablet 2.5 mg PO DAILY Ozempic 0.25 mg or 0.5 mg(2 mg/1.5 mL) pen injector 1 mg SUBCUT Q7D Rx Instructions: ON FRIDAY glipizide 5 mg tablet 5 mg PO DAILY sulfamethoxazole-trimethoprim 800-160 mg tablet 2 tab PO DAILY Discharge Orders: Discharge Order (Routine); Ordered 10/01/22 Ordered By: Papi Matta Referrals: Amanda Ovalle FNP [Primary Care Provider] - 1 week [facility]OUND [facility]ARE CL[facility], [Staff Physician] - 1-3 days Discharge Diet: Cardiac and Diabetic Discharge Activity: Resume usual activity and Increase activity as tolerated Patient Instructions: Metoprolol (By mouth), Metronidazole (By mouth), Vancomycin (By injection), Abscess (GEN), Midline Catheter (GEN), Opioid Safety Activity Restrictions/Additional Instructions: Repeat CBC and CMP weekly while you are on the antibiotic. Check trough levels every third day. Target trough level between 15-20. Please continue doing dressings daily. To follow-up with wound care clinic at the earliest. You will be on Lantus 35 units every night and insulin sliding scale premeals as below. Humalog Premeal insulin scale? if 141-180 mg/dl, then 2 units/SQ; If 181-220 mg/dl, then 4 units/SQ; If 221-260 mg/dl, then 6 units/SQ; If 261-300 mg/dl, then 10 units/SQ; If 301-350 mg/dl, then 12 units/SQ; If 351-400 mg/dl, then 14 units/SQ; If greater than 400 mg/dl, then 18 units/SQ Discharge Attestations Time Spent in Discharge Care*: greater than 30 min Specific Discharge Activities: educating patient, educating and/or supporting family/caregiver, discussing with pcp/other providers, discussing with case making machine operator/social workers/dc planners, documenting/other paperwork and evaluating patient/reviewing data Status at Discharge: Cognitive status at discharge: cognitively intact , Behavioral status at discharge: cooperative , Functional status at discharge: independent ambulation , Overall status at discharge: patient is progressing back to baseline Quality Metrics Clinical Quality Measures [ No reported AMI, CVA or VTE this stay] Coding Level of Care Code 80609 Total time (in minutes) for Discharge: 60 Diagnoses Abscess, gluteal, right L02.31 Bacteremia due to Staphylococcus R78.81; B95.8 Cellulitis, gluteal, right L03.317 SIRS (systemic inflammatory response syndrome) R65.10 Uncontrolled type 2 diabetes mellitus HTN (hypertension) I10 Hyponatremia E87.1
[2022-10-01 11:37] LABS: Glucose Point of Care 232 mg/dL (70-110)
[2022-10-01 12:00] VITALS: BP 128/81; PULSE 91; TEMP 36.6; O2SAT 95
[2022-10-01 12:00] LABS: SARS Covid-2 Antigen negative (Negative)
--- NOTE | 2022-10-01 12:13 | PC.SOCIAL ---
IMM Updated Updated pt on IMM. No questions voiced. Provided pt a copy. Initialed, dated, & timed copy in chart.
[2022-10-01] MEDS: insulin lispro 100 unit/1 mL SUBCUT (12:31)
--- NOTE | 2022-10-01 13:33 | PC.NURSE ---
report called to [facility].
[2022-10-01 15:13] VITALS: BP 128/81; PULSE 91; TEMP 36.6; O2SAT 95
== END 2022-10-01 14:45 | disposition skilled nursing facility (03) | DRG 603 ==
LOC: ER 17:52 → MEDSURG 18:14
PROVIDERS: Nurse Practitioner; Thoracic Surgery (Cardiothoracic Vascular Surgery); Admitting Provider Internal Medicine; Emergency Provider Emergency Medicine; PCP Nurse Practitioner Family; Visit Provider Student in an Organized Health Care Education/Training Program
PROC: 0Y900ZX Drainage of Right Buttock, Open Approach, Diagnostic (ICD-10-PCS; principal; 2022-09-24 16:00)
DX: L02.31 Cutaneous abscess of buttock (principal); E87.1 Hypo-osmolality and hyponatremia; N17.9 Acute kidney failure, unspecified; L03.317 Cellulitis of buttock; B95.7 Other staphylococcus as the cause of diseases classified elsewhere; I10 Essential (primary) hypertension; E11.65 Type 2 diabetes mellitus with hyperglycemia; E11.40 Type 2 diabetes mellitus with diabetic neuropathy, unspecified; F41.9 Anxiety disorder, unspecified; F32.A Depression, unspecified; K57.90 Diverticulosis of intestine, part unspecified, without perforation or abscess without bleeding; F17.210 Nicotine dependence, cigarettes, uncomplicated; T50.996A Underdosing of other drugs, medicaments and biological substances, initial encounter; Z91.128 Patient's intentional underdosing of medication regimen for other reason; K76.0 Fatty (change of) liver, not elsewhere classified; E27.8 Other specified disorders of adrenal gland; N28.1 Cyst of kidney, acquired; X58.XXXA Exposure to other specified factors, initial encounter
CPT/HCPCS: 36415; 36416; 36569; 74177; 80048; 80053; 80061; 80202; 82009; 82607; 82746; 82962; 83036; 83540; 83550; 83605; 84145; 84443; 85007; 85025; 85651; 86140; 87040; 87070; 87075; 87077; 87176; 87186; 87205; 87426; 87641; 96365; 96366; 96367; 96372; 96375; 96376; 99285; A6446; C1751; J0690; J1170; J1650; J1815; J2250; J2270; J2405; J2543; J3010; J3370; J7030; J7040; J7050; Q9967

== ENCOUNTER 2022-10-05 20:12 | Emergency (ER) | payer MEDICARE, SELFPAY ==
[2022-10-05 20:14] VITALS: BP 151/87; PULSE 104; RESP 16; TEMP 36.7; O2SAT 99; BMI 37.0
--- NOTE | 2022-10-05 20:21 | ED_ITS ---
HPI - Wound/Laceration General: Chief Complaint: General Medical Stated Complaint: MIDLINE ISSUES Time Seen by Provider: 10/05/22 20:12 Source: patient and EMS History of Present Illness: 61-year-old female who is in the long term for IV antibiotics and care. She has a left mid biceps midline that would not flush this evening. It also will not draw. She was sent in for line check. She has no significant pain. Onset (ago): hour(s) Extremity Location: Left: arm Place: other Context: other Associated symptoms: Reports no associated symptoms; Denies fever(s) Review of Systems Const: Denies: fever(s) Resp: Denies: dyspnea Skin/Breast: Denies: rash PFSH ED PFSH: Medical History (Updated 10/05/22 @ 21:16 by Jackson Anne DO) Anxiety Breast lump R side in 1300 position Depression Diabetes type 2 Diverticulosis of duodenum HTN (hypertension) No pertinent past medical history neghx; thyroid,dvt/pe Tachycardia Ulcer Urgency incontinence Surgical History History of fracture of right ankle ORIF Hx of tubal ligation (~1994) Family History Mother Diabetes Hypertension Grandmother Diabetes Paternal Father Hypertension Family/Other Heart disease Paternal Aunt, Paternal Uncle Denies family history of Colon cancer Ovarian cancer Clotting disorder Hypercholesteremia Breast cancer Bleeding disorder Uterine cancer Thyroid disease Stroke Social History Smoking and tobacco status: current every day smoker Additional social history: - Tobacco use: current- rolls her own cigarettes--unknown amount, started smoking at age 21 Alcohol use: None Drug use: Previous marijuana in her 20's Physical Exam Const: COMMON NORMALS: no acute distress GENERAL APPEARANCE: cooperative; not ill appearing HENMT: COMMON NORMALS: normocephalic and atraumatic HEAD & SCALP: normocephalic and atraumatic Eye: COMMON NORMALS: Equal, round and reactive pupils present and EOMs intact bilaterally PUPIL: Yes Equal, round and reactive pupils present Chest: CHEST: Yes Symmetrical chest wall rise Resp: COMMON NORMALS: normal respiratory effort and No use of accessory muscles Cardio: COMMON NORMALS: regular rate and regular rhythm RATE: regular rate RHYTHM: regular rhythm Extremity: NARRATIVE EXTREMITY EXAM: Left mid bicep midline IV access. It is free of erythema, swelling, drainage. Neuro: PATRICK COMA SCALE: document GCS findings [place] coma scale eye opening: Spontaneous Patrick coma scale verbal response: Orientated [place] coma scale motor response: Obey commands [place] coma scale total score: 15 Course Vital Signs: Vital signs: Vital Signs Temperature 98.1 F 10/05/22 20:14 Pulse Rate 104 H 10/05/22 20:14 Respiratory Rate 16 10/05/22 20:14 Blood Pressure 151/87 10/05/22 20:14 Pulse Oximetry 99 10/05/22 20:14 Oxygen Delivery Me thod 10/05/22 20:14 MDM - Wound/Laceration Medical Decision Making We will attempt Cathflo flush. If unsuccessful, we will have to place peripheral line, as we have no midline nurse coverage on the weekends. We will ask case management to set her up if this needed Cathflo flush worked well. Patient receiving 500 mL of bolus to flush the line and ensure working properly. She will be allowed discharged Discharge Plan Discharge Patient Disposition: Home Clinical Impression: Occluded PICC line Condition: Stable Prescriptions: No Action omeprazole 20 mg capsule,delayed release(DR/EC) 20 mg PO BID baclofen 10 mg tablet 10 mg PO DAILY PRN (Reason: Pain) Rx Instructions: needs to setup with a new provider All Day Allergy (cetirizine) 10 mg capsule 10 mg PO DAILY simvastatin 20 mg tablet 20 mg PO DAILY metronidazole 500 mg Tablet 500 mg PO TID 7 Days Qty: 21 0RF metoprolol tartrate 25 mg Tablet 25 mg PO BID@0900,2100 Qty: 60 0RF Lantus Solostar U-100 Insulin 100 unit/mL (3 mL) insulin pen 30 unit SUBCUT QPM Qty: 15 0RF insulin lispro 100 unit/mL insulin pen See Protocol SUBCUT TID Qty: 15 0RF Protocol: Insulin Corrective High-Dose Regimen Condition: Fingerstick Blood Glucose Dose/Route: Insulin Units Condition: 141-180 mg/dl Dose/Route: 2 units/SQ Condition: 181-220 mg/dl Dose/Route: 4 units/SQ Condition: 221-260 mg/dl Dose/Route: 6 units/SQ Condition: 261-300 mg/dl Dose/Route: 10 units/SQ Condition: 301-350 mg/dl Dose/Route: 12 units/SQ Condition: 351-400 mg/dl Dose/Route: 14 units/SQ Condition: greater than 400 mg/dl Dose/Route: 18 units/SQ vancomycin 1.25 gram recon soln 1.25 g IV Q18H 14 Days Qty: 10 0RF Discharge Orders: Discharge ED (Routine); Ordered 10/05/22 Ordered By: Jackson Anne Referrals: Amanda Ovalle FNP [Primary Care Provider] - Patient Instructions: How to Care for Your PICC (Peripherally Inserted Central Catheter) (ED), How to Flush Your PICC (Peripherally Inserted Central Catheter) (ED) Activity Restrictions/Additional Instructions: Return for any problems Coding Level of Care Code ED Hand Marker for Taiwo Wong
[2022-10-05] MEDS: alteplase 1 mg/mL SDV 2 mL 2 MG INTRACATH (20:50)
== END 2022-10-05 21:45 | disposition home or self-care (01) ==
PROVIDERS: Emergency Provider Emergency Medicine; PCP Nurse Practitioner Family
DX: T82.898A Other specified complication of vascular prosthetic devices, implants and grafts, initial encounter (principal); Y82.8 Other medical devices associated with adverse incidents; Z79.4 Long term (current) use of insulin; F17.210 Nicotine dependence, cigarettes, uncomplicated; E11.9 Type 2 diabetes mellitus without complications; I10 Essential (primary) hypertension
CPT/HCPCS: 99284; J2997

== ENCOUNTER 2022-10-08 12:58 | Outpatient (CLI) | payer MEDICARE, SELFPAY ==
[2022-10-08 13:36] LABS: Vancomycin Trough 11.2 ug/mL (10-15)
== END 2022-10-08 12:59 | disposition home or self-care (01) ==
LOC: LAB 12:59
PROVIDERS: PCP Nurse Practitioner Family; Visit Provider Internal Medicine
DX: Z00.00 Encounter for general adult medical examination without abnormal findings (principal)
CPT/HCPCS: 80202

== ENCOUNTER → 2022-10-15 09:41 | Outpatient (BNVA) | payer MEDICARE, SELFPAY | PROVIDERS: PCP Nurse Practitioner Family; Visit Provider Nurse Practitioner Family | DX: T81.31XD Disruption of external operation (surgical) wound, not elsewhere classified, subsequent encounter (principal); Y83.8 Other surgical procedures as the cause of abnormal reaction of the patient, or of later complication, without mention of misadventure at the time of the procedure | CPT/HCPCS: 11042; 99213 ==

== ENCOUNTER → 2022-10-17 09:18 | Outpatient (BNVA) | payer MEDICARE, SELFPAY | PROVIDERS: PCP Nurse Practitioner Family; Visit Provider Nurse Practitioner Family | DX: T81.31XD Disruption of external operation (surgical) wound, not elsewhere classified, subsequent encounter (principal); Y83.8 Other surgical procedures as the cause of abnormal reaction of the patient, or of later complication, without mention of misadventure at the time of the procedure | CPT/HCPCS: 99211; A6446 ==

== ENCOUNTER → 2022-10-22 10:20 | Outpatient (BNVA) | payer MEDICARE, SELFPAY | PROVIDERS: PCP Nurse Practitioner Family; Visit Provider Nurse Practitioner Family | DX: L02.31 Cutaneous abscess of buttock (principal) | CPT/HCPCS: 11042 ==

== ENCOUNTER → 2022-10-25 13:59 | Outpatient (BNVA) | payer MEDICARE, SELFPAY | PROVIDERS: PCP Nurse Practitioner Family; Visit Provider Thoracic Surgery (Cardiothoracic Vascular Surgery) | DX: T81.31XD Disruption of external operation (surgical) wound, not elsewhere classified, subsequent encounter (principal); Y83.8 Other surgical procedures as the cause of abnormal reaction of the patient, or of later complication, without mention of misadventure at the time of the procedure | CPT/HCPCS: 99211; A6212 ==

== ENCOUNTER → 2022-10-29 10:03 | Outpatient (BNVA) | payer MEDICARE, SELFPAY | PROVIDERS: PCP Nurse Practitioner Family; Visit Provider Nurse Practitioner Family | DX: T81.31XD Disruption of external operation (surgical) wound, not elsewhere classified, subsequent encounter (principal); Y83.8 Other surgical procedures as the cause of abnormal reaction of the patient, or of later complication, without mention of misadventure at the time of the procedure | CPT/HCPCS: 11042 ==

== ENCOUNTER → 2022-10-31 11:17 | Outpatient (BNVA) | payer MEDICARE, SELFPAY | PROVIDERS: PCP Nurse Practitioner Family; Visit Provider Nurse Practitioner Family | DX: T81.31XD Disruption of external operation (surgical) wound, not elsewhere classified, subsequent encounter (principal); Y83.8 Other surgical procedures as the cause of abnormal reaction of the patient, or of later complication, without mention of misadventure at the time of the procedure | CPT/HCPCS: 99211 ==

== ENCOUNTER → 2022-11-05 10:16 | Outpatient (BNVA) | payer MEDICARE, SELFPAY | PROVIDERS: PCP Nurse Practitioner Family; Visit Provider Nurse Practitioner Family | DX: T81.31XD Disruption of external operation (surgical) wound, not elsewhere classified, subsequent encounter (principal); Y83.8 Other surgical procedures as the cause of abnormal reaction of the patient, or of later complication, without mention of misadventure at the time of the procedure | CPT/HCPCS: 11042; A6212 ==

== ENCOUNTER → 2022-11-12 09:18 | Outpatient (BNVA) | payer MEDICARE, SELFPAY | PROVIDERS: PCP Nurse Practitioner Family; Visit Provider Nurse Practitioner Family | DX: Z09 Encounter for follow-up examination after completed treatment for conditions other than malignant neoplasm (principal); Z87.828 Personal history of other (healed) physical injury and trauma | CPT/HCPCS: 99212; A6212 ==

== ENCOUNTER 2023-07-02 11:47 | Outpatient (CLI) | payer MEDICARE, SELFPAY ==
--- NOTE | 2023-07-02 | ECG_ITS ---
[facility] Test Date: 2023-07-02 Pat Name: Lisa Duke Department: Room: Gender: Female Computer Service Technician: : 1960 Requested By: Amanda Ovalle Order Number: [id number] Wisam MD: Fritz Garcia M.D. Interpretive Statements NAME OF STUDY: TREADMILL STRESS TEST INDICATION: [Chest Pain] EXERCISE DATA: The patient was exercised by Masoud protocol. Baseline heart rate was 108 beats per minute. Baseline blood pressure was 131/87 millimeters of mercury. Target heart rate was 136 beats per minute. Maximum heart rate achieved was 172 which was 126% of the target heart rate. Maximum blood pressure was 167/84 millimeters of mercury. Total exercise time was 3 minutes and 1 second. Maximum METs achieved was 4.6. The reason for ending the test was target heart rate achieved. The patient complained of chest pain and tight sensation aroing the throat during the stress test, which then resolved at the end of the test. ELECTROCARDIOGRAM: BASELINE: Showed sinus tachycardia, normal axis, no significant ST-T changes at the baseline noted. [] EXERCISE: At the peak exercise level, [] 1-2mm ST depressions noted in inferior and lateral leads RECOVERY: During the recovery period, heart rate dropped appropriately. No significant ST-T changes in the recovery suggestive of ischemia noted. [] CONCLUSION: 1. Exercise capacity poor 2. Heart rate response was appropriate. 3. Blood pressure response was appropriate. 4. Symptoms suggestive of ischemia. 5. Stress test is abnormal and is suggestive of ischemia Electronically Signed On 07-22-2023 16:20:06 ASSEMBLY STOCK SUPERVISOR by Fritz Garcia M.D. [email or web address]
[2023-07-02 11:55] VITALS: BMI 37.0
[2023-07-02 12:55] VITALS: BP 143/72; PULSE 118
== END 2023-07-02 11:48 | disposition home or self-care (01) ==
PROVIDERS: PCP Nurse Practitioner Family; Visit Provider Nurse Practitioner Family
DX: R07.9 Chest pain, unspecified (principal)
CPT/HCPCS: 93017

== ENCOUNTER → 2023-08-25 10:32 | Outpatient (BNVA) | payer MEDICARE, SELFPAY | PROVIDERS: PCP Nurse Practitioner Family; Referring Provider Nurse Practitioner Family; Visit Provider Internal Medicine | DX: E11.40 Type 2 diabetes mellitus with diabetic neuropathy, unspecified (principal); Z79.4 Long term (current) use of insulin; E87.1 Hypo-osmolality and hyponatremia; E78.2 Mixed hyperlipidemia; R63.5 Abnormal weight gain; I25.10 Atherosclerotic heart disease of native coronary artery without angina pectoris; Z68.41 Body mass index [BMI] 40.0-44.9, adult | CPT/HCPCS: 99204 ==

== ENCOUNTER → 2023-09-04 13:38 | Outpatient (BNVA) | payer MEDICARE, SELFPAY | PROVIDERS: PCP Nurse Practitioner Family; Referring Provider Nurse Practitioner Family; Visit Provider Internal Medicine | DX: R07.9 Chest pain, unspecified (principal) | CPT/HCPCS: 93005; 99204 ==

== ENCOUNTER 2023-09-10 12:48 | Outpatient (CLI) | payer MEDICARE, SELFPAY ==
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
== END 2023-09-10 12:49 | disposition home or self-care (01) ==
LOC: DIET 12:48
PROVIDERS: PCP Nurse Practitioner Family; Visit Provider Internal Medicine
DX: Z71.3 Dietary counseling and surveillance (principal); E11.40 Type 2 diabetes mellitus with diabetic neuropathy, unspecified; Z79.4 Long term (current) use of insulin; E87.1 Hypo-osmolality and hyponatremia; Z68.41 Body mass index [BMI] 40.0-44.9, adult; Z63.79 Other stressful life events affecting family and household
CPT/HCPCS: 97802

== ENCOUNTER → 2023-12-03 08:40 | Outpatient (BNVA) | payer MEDICARE, SELFPAY | PROVIDERS: PCP Nurse Practitioner Family; Visit Provider Internal Medicine | DX: E11.40 Type 2 diabetes mellitus with diabetic neuropathy, unspecified (principal); Z79.4 Long term (current) use of insulin; E78.2 Mixed hyperlipidemia; R63.5 Abnormal weight gain; Z68.41 Body mass index [BMI] 40.0-44.9, adult | CPT/HCPCS: 80053; 80061; 82044; 83036; 99214 ==

== ENCOUNTER → 2024-03-05 08:00 | Outpatient (BNVA) | payer MEDICARE, SELFPAY | PROVIDERS: PCP Nurse Practitioner Family; Visit Provider Internal Medicine | DX: E11.40 Type 2 diabetes mellitus with diabetic neuropathy, unspecified (principal); Z79.4 Long term (current) use of insulin; E78.2 Mixed hyperlipidemia; R63.5 Abnormal weight gain; Z68.41 Body mass index [BMI] 40.0-44.9, adult; Z79.85 Long-term (current) use of injectable non-insulin antidiabetic drugs | CPT/HCPCS: 36415; 80053; 80061; 82044; 83036; 99214 ==

== ENCOUNTER 2024-03-16 14:17 | Outpatient (CLI) | payer MEDICARE, SELFPAY | END 2024-03-16 14:18 | disposition home or self-care (01) | LOC: SPT 14:17 | PROVIDERS: PCP Nurse Practitioner Family; Visit Provider Podiatrist Foot & Ankle Surgery | DX: E11.42 Type 2 diabetes mellitus with diabetic polyneuropathy (principal); L60.3 Nail dystrophy; G62.9 Polyneuropathy, unspecified; M19.071 Primary osteoarthritis, right ankle and foot; Z79.4 Long term (current) use of insulin | CPT/HCPCS: 11055; 11721; 99203; L1902 ==

== ENCOUNTER → 2024-03-29 13:33 | Outpatient (BNVA) | payer MEDICARE, SELFPAY | PROVIDERS: PCP Nurse Practitioner Family; Visit Provider Nurse Practitioner Women's Health | DX: R10.2 Pelvic and perineal pain (principal) | CPT/HCPCS: 76830 ==

== ENCOUNTER → 2024-07-06 07:54 | Outpatient (BNVA) | payer MEDICARE, SELFPAY | PROVIDERS: PCP Nurse Practitioner Family; Visit Provider Internal Medicine | DX: E11.40 Type 2 diabetes mellitus with diabetic neuropathy, unspecified (principal); Z79.4 Long term (current) use of insulin; E78.2 Mixed hyperlipidemia; R63.5 Abnormal weight gain; Z68.41 Body mass index [BMI] 40.0-44.9, adult; Z79.85 Long-term (current) use of injectable non-insulin antidiabetic drugs | CPT/HCPCS: 99214 ==

== ENCOUNTER 2024-08-31 08:46 | Outpatient (CLI) | payer MEDICARE, SELFPAY ==
--- NOTE | 2024-08-31 08:51 | MM_ITS ---
WS: [id number] BILATERAL 3D TOMOSYNTHESIS DIGITAL SCREENING MAMMOGRAM WITH CAD CLINICAL INFORMATION: SCREENING HISTORY: Screening mammogram. No current complaints. COMPARISON: 2020 TECHNIQUE: Bilateral CC and MLO views. FINDINGS: Fatty-replaced breasts bilaterally. No suspicious focal mass, asymmetry, calcifications, or architectural distortion. No evidence of malignancy. Stable lymph node RIGHT breast. MM/MM scr tomosynthesis [id number] IMPRESSION: DENSITY: The breasts are almost entirely fatty. BI-RADS: 2 - Benign. FOLLOW UP: 1 Year Follow-up Recommend return to annual screening mammography.
== END 2024-08-31 08:47 | disposition home or self-care (01) ==
PROVIDERS: PCP Nurse Practitioner Family; Visit Provider Nurse Practitioner Family
DX: Z12.31 Encounter for screening mammogram for malignant neoplasm of breast (principal); R92.313 Mammographic fatty tissue density, bilateral breasts; R59.0 Localized enlarged lymph nodes
CPT/HCPCS: 77063; 77067

== ENCOUNTER → 2024-10-28 08:20 | Outpatient (BNVA) | payer MEDICARE, SELFPAY | PROVIDERS: PCP Nurse Practitioner Family; Visit Provider Internal Medicine | DX: E11.40 Type 2 diabetes mellitus with diabetic neuropathy, unspecified (principal); Z79.4 Long term (current) use of insulin; E78.2 Mixed hyperlipidemia; R63.5 Abnormal weight gain | CPT/HCPCS: 80053; 80061; 82044; 83036; 99214 ==

== ENCOUNTER → 2025-03-15 08:41 | Outpatient (BNVA) | payer MEDICARE, SELFPAY | PROVIDERS: PCP Nurse Practitioner Family; Visit Provider Internal Medicine | DX: E11.9 Type 2 diabetes mellitus without complications (principal); E78.2 Mixed hyperlipidemia; R63.5 Abnormal weight gain; Z79.4 Long term (current) use of insulin | CPT/HCPCS: 99214 ==

== ENCOUNTER → 2025-04-05 08:19 | Outpatient (BNVA) | payer MEDICARE, SELFPAY | PROVIDERS: PCP Nurse Practitioner Family; Visit Provider Podiatrist Foot & Ankle Surgery | DX: M19.071 Primary osteoarthritis, right ankle and foot (principal); L60.3 Nail dystrophy; G62.9 Polyneuropathy, unspecified; S82.91 Unspecified fracture of right lower leg; X58.XXXD Exposure to other specified factors, subsequent encounter | CPT/HCPCS: 73610; 73630; 99214 ==